=== PATIENT | female | born 1960 | race Caucasian/White ===

== ENCOUNTER → 2017-06-30 | Outpatient (CLI) | payer OTHER ==
[2017-06-30 15:47] LABS: BASO # 0.1 10^3/uL (0.0-0.2); BASO % 1.3 % (0.0-1.0); EOS # 0.3 10^3/uL (0.0-0.50); EOS % 3.6 % (0.0-3.0); HEMATOCRIT 41.6 % (36.0-47.0); IMMATURE GRANULOCYTE % 0.3 % (0-3.0); LYMPH # 1.7 10^3/uL (1.5-4.5); LYMPH % 21.4 % (24.0-44.0); MEAN CORPUSCULAR HEMOGLOBIN 30.6 pg (27.0-33.0); MEAN CORPUSCULAR HGB CONC 33.7 g/dl (32.0-36.5); MONO # 0.4 10^3/uL (0.0-0.8); MONO % 5.2 % (0.0-5.0); NEUTROPHILS # 5.3 10^3/uL (1.8-7.7); NEUTROPHILS % 68.2 % (36.0-66.0); PLATELET COUNT, AUTOMATED 379 10^3/uL (150-450); RED BLOOD COUNT 4.57 10^6/uL (4.00-5.40); RED CELL DISTRIBUTION WIDTH 13.2 % (11.5-14.5); WHITE BLOOD COUNT 7.8 10^3/uL (4.0-10.0)
[2017-06-30 16:32] LABS: ALBUMIN/GLOBULIN RATIO 1.38 (1.00-1.93); ALKALINE PHOSPHATASE 82 U/L (45-117); ALT/SGPT 24 U/L (12-78); ANION GAP 6 MEQ/L (8-16); AST/SGOT 16 U/L (7-37); BILIRUBIN,TOTAL 0.3 MG/DL (0.2-1.0); BLOOD UREA NITROGEN 14 MG/DL (7-18); CALCIUM LEVEL 9.4 MG/DL (8.5-10.1); CARBON DIOXIDE LEVEL 26 MEQ/L (21-32); CHLORIDE LEVEL 107 MEQ/L (98-107); CREATININE FOR GFR 0.74 MG/DL (0.55-1.30); GLOMERULAR FILTRATION RATE > 60.0 (>51); GLUCOSE, FASTING 91 MG/DL (70-100); POTASSIUM SERUM 4.3 MEQ/L (3.5-5.1); SODIUM LEVEL 139 MEQ/L (136-145); TOTAL PROTEIN 6.9 GM/DL (6.4-8.2)
== END ==
LOC: M LAB 14:23
DX: F33.1 Major depressive disorder, recurrent, moderate (principal)
CPT/HCPCS: 80053

== ENCOUNTER → 2018-01-16 | Outpatient (CLI) | payer OTHER | LOC: M PLARAD 15:24 | DX: R59.0 Localized enlarged lymph nodes (principal); Z85.41 Personal history of malignant neoplasm of cervix uteri; E04.1 Nontoxic single thyroid nodule; J84.10 Pulmonary fibrosis, unspecified | CPT/HCPCS: 78815 ==

== ENCOUNTER → 2018-01-29 | Outpatient (REF) | payer OTHER ==
[2018-01-29 18:53] LABS: APPEARANCE, URINE CLEAR (CLEAR); BACTERIA, URINE AUTO 1+ (NEGATIVE); BILIRUBIN, URINE AUTO NEGATIVE (NEGATIVE); BLOOD, URINE BLOOD 1+ (NEGATIVE); COLOR, URINE YELLOW (YELLOW); GLUCOSE, URINE (UA) AUTO NEGATIVE (NEGATIVE); KETONE, URINE AUTO TRACE mg/dL (NEGATIVE); LEUKOCYTE ESTERASE, URINE AUTO TRACE (NEGATIVE); MUCUS, URINE SMALL (NEGATIVE); NITRITE, URINE AUTO NEGATIVE (NEGATIVE); PROTEIN, URINE AUTO NEGATIVE (NEGATIVE); RBC, URINE AUTO 4 /HPF (0-3); SPECIFIC GRAVITY URINE AUTO 1.015 (1.002-1.035); SQUAMOUS EPITHELIAL CELL UR AU 2 /HPF (0-6); UROBILINOGEN, URINE AUTO 0.2 mg/dL (0.0-2.0); WBC, URINE AUTO 5 /HPF (0-3)
== END ==
LOC: M LAB REF 17:22
DX: R30.0 Dysuria (principal)

== ENCOUNTER → 2018-02-22 | Outpatient (CLI) | payer OTHER | LOC: M RAD 09:37 | DX: E04.2 Nontoxic multinodular goiter (principal) | CPT/HCPCS: 76536 ==

== ENCOUNTER → 2018-03-28 | Outpatient (REF) | payer OTHER ==
[2018-03-28 12:09] LABS: ANION GAP 6 MEQ/L (8-16); BLOOD UREA NITROGEN 16 MG/DL (7-18); CALCIUM LEVEL 9.3 MG/DL (8.5-10.1); CARBON DIOXIDE LEVEL 27 MEQ/L (21-32); CHLORIDE LEVEL 107 MEQ/L (98-107); CHOLESTEROL LEVEL 226 MG/DL (<200); CHOLESTEROL RISK RATIO 4.612 (<5); CREATININE FOR GFR 0.84 MG/DL (0.55-1.30); GLOMERULAR FILTRATION RATE > 60.0 (>51); GLUCOSE, FASTING 99 MG/DL (70-100); HDL CHOLESTEROL 49 MG/DL (>40); LDL CHOLESTEROL 153 MG/DL (<100); NON-HDL-C 177 MG/DL; POTASSIUM SERUM 4.8 MEQ/L (3.5-5.1); SODIUM LEVEL 140 MEQ/L (136-145); TRIGLYCERIDES LEVEL 118 MG/DL (<150)
== END ==
LOC: M SFHCPLAZ 09:18
DX: E04.1 Nontoxic single thyroid nodule (principal); Z13.220 Encounter for screening for lipoid disorders; Z13.1 Encounter for screening for diabetes mellitus

== ENCOUNTER → 2018-04-06 | Outpatient (REF) | payer OTHER | LOC: M LAB REF 15:53 | DX: D34 Benign neoplasm of thyroid gland (principal) | CPT/HCPCS: 88173 ==

== ENCOUNTER → 2018-05-03 | Outpatient (CLI) | payer OTHER ==
[~2018-05-03] MED LIST: E-Z-GAS II EFFERVESCENT PACKET (SODIUM BICARB./CITRIC ACID/SIMETHICONE) As Ordered; E-Z-HD 98% w/w 340GM SUSP BTL As Ordered; E-Z-PAQUE 96% w/w SUSP 176GM BTL As Ordered
== END ==
LOC: M RAD 08:31
DX: Z12.31 Encounter for screening mammogram for malignant neoplasm of breast (principal); K44.9 Diaphragmatic hernia without obstruction or gangrene; K21.9 Gastro-esophageal reflux disease without esophagitis; R13.10 Dysphagia, unspecified; Z80.9 Family history of malignant neoplasm, unspecified; Z86.018 Personal history of other benign neoplasm
CPT/HCPCS: 74220

== ENCOUNTER → 2018-06-22 | Outpatient (CLI) | payer OTHER ==
--- NOTE | 2018-06-22 14:57 | REP ---
Clinical: Left groin adenopathy. Technique: Real time genao scale ultrasound examination using linear high frequency transducer. Findings: Ultrasound examination of the right groin demonstrates few normal appearing lymph nodes measuring up to 22 x 6 x 11 mm. No swelling, fluid collection, or mass lesion. No obvious hernia. Impression: Normal appearing right groin lymph nodes. Electronically Signed by Bryan Schafer MD 06/22/2018 02:49 P
== END ==
LOC: M RAD 14:04
PROVIDERS: ATTEND Family Medicine
DX: R59.0 Localized enlarged lymph nodes (principal)

== ENCOUNTER → 2018-08-13 | Outpatient (REF) | payer OTHER ==
[2018-08-13 13:19] LABS: INFLUENZA A AMPLIFICATION POSITIVE (NEGATIVE); INFLUENZA B AMPLIFICATION NEGATIVE (NEGATIVE)
== END ==
LOC: M LAB REF 11:49
PROVIDERS: ATTEND Physician Assistant Medical
DX: J11.1 Influenza due to unidentified influenza virus with other respiratory manifestations (principal)

== ENCOUNTER → 2019-03-14 | Outpatient (CLI) | payer OTHER ==
--- NOTE | 2019-03-14 17:57 | REP ---
Two-view chest: 03/14/2019. Indication: Cough. Comparison: 01/30/2014. Findings: The lungs are clear. Right lower lobe calcified granuloma is unchanged. There is no pleural effusion or pneumothorax. The cardiomediastinal silhouette is unremarkable. Impression: No acute cardiopulmonary process. Electronically Signed by Jose Alberto Pepe DO 03/14/2019 05:49 P
== END ==
LOC: M RAD 14:49
DX: R05 Cough (principal)

== ENCOUNTER → 2019-06-25 | Outpatient (REF) | payer OTHER ==
[2019-06-25 18:07] LABS: CHOLESTEROL RISK RATIO 4.034 (<5)
== END ==
LOC: M SFHCPLAZ 14:10
PROVIDERS: ATTEND Family Medicine
DX: Z13.220 Encounter for screening for lipoid disorders (principal); Z13.1 Encounter for screening for diabetes mellitus

== ENCOUNTER → 2019-10-01 | Outpatient (CLI) | payer OTHER | LOC: M LABSMTC 12:36 | PROVIDERS: ATTEND Family Medicine | DX: Z11.59 Encounter for screening for other viral diseases (principal) | CPT/HCPCS: C8903; U0003 ==

== ENCOUNTER → 2020-05-05 | Outpatient (REF) | payer OTHER ==
[2020-05-05 17:52] LABS: CHOLESTEROL RISK RATIO 4.363 (<5)
[2020-05-05 18:50] LABS: HEMOGLOBIN A1c 5.5 %
== END ==
LOC: M SFHCPLAZ 14:43
PROVIDERS: ATTEND Family Medicine
DX: Z13.1 Encounter for screening for diabetes mellitus (principal); Z13.220 Encounter for screening for lipoid disorders

== ENCOUNTER → 2020-05-08 | Outpatient (CLI) | payer OTHER ==
--- NOTE | 2020-05-08 17:03 | REP ---
INDICATION: ENCNTR SCREEN FOR MALIGNANT NEOPLASM OF RESPIRATORY ORGANS. COMPARISON: None. TECHNIQUE: The study is performed without IV contrast. The images are presented at lung windowing only. FINDINGS: There the following lung nodules: Right upper lobe posteriorly, image 18, 6 mm calcified granuloma Right upper lobe laterally, image 20, 3 mm. Right upper lobe posterolaterally, image 20, 5 mm. Right upper lobe posteriorly, image 39, 4 mm. Right upper lobe posterolaterally, image 40, 3 mm. Right upper lobe posterolaterally, image 41, 4 mm. Left lower lobe, image 64, 4 mm. Right lower lobe, image 76, calcified granuloma 11 mm. There are no other lung nodules or masses. There are no infiltrates or pleural effusions. IMPRESSION: All of the above lung nodules are category 2 lung nodules. The probability of malignancy is less than 1%. Depending on risk factors consider annual follow-up low-dose lung screening chest CT. <Electronically signed by Timothy Harman > 05/08/20 0482
== END ==
LOC: M RAD 13:31
PROVIDERS: ATTEND Family Medicine
DX: Z12.2 Encounter for screening for malignant neoplasm of respiratory organs (principal); F17.218 Nicotine dependence, cigarettes, with other nicotine-induced disorders

== ENCOUNTER → 2020-05-26 | Outpatient (CLI) | payer OTHER ==
--- NOTE | 2020-05-26 14:52 | REPMRS ---
Patient History The patient states she has not had a clinical breast exam in over a year. Patient is postmenopausal, has history of other cancer at age 44, and had previous chemotherapy at age 44. Family history of prostate cancer at age 50 or over and colorectal cancer at age 50 or over in father. Benign stereotatic breast biopsy of the left breast, 2002. No Hormone Replacement Therapy 3D TOMOSYNTHESIS WAS PERFORMED. The [facility] lifetime risk for breast cancer is 5.2%. Volpara breast density c. Digital Woman Screen Mammo: May 26, 2020 - Exam #: [id number] Bilateral CC and MLO view(s) were taken. Technologist: Keyonna Jaeger, Technologist Prior study comparison: May 03, 2018, bilateral digital mammo screening bilat, performed at [facility]. November 04, 2011, digital woman screen mammo performed at [facility]. FINDINGS: The breast tissue is heterogeneously dense. This may lower the sensitivity of mammography. There has been no change in the appearance of the mammogram from the prior studies. There is a moderate amount of residual fibroglandular tissue which is fairly symmetric. There is no interval development of dominant mass, areas of architectural distortion, or clustered microcalcification typical of malignancy. Assessment: BI-RADS/ACR category 1 mammogram. Negative Mammogram. Recommendation Routine screening mammogram in 1 year (for women over age 40). This mammogram was interpreted with the aid of an FDA-approved computer-aided dectection system. Electronically Signed By: Timothy Sandoval MD 05/26/20 [id number]
== END ==
LOC: M WHC 14:17
PROVIDERS: ATTEND Family Medicine
DX: Z12.31 Encounter for screening mammogram for malignant neoplasm of breast (principal); Z85.9 Personal history of malignant neoplasm, unspecified; Z80.0 Family history of malignant neoplasm of digestive organs

== ENCOUNTER → 2020-06-02 | Outpatient (CLI) | payer OTHER ==
[~2020-06-02] MED LIST changes: -E-Z-GAS II EFFERVESCENT PACKET (SODIUM BICARB./CITRIC ACID/SIMETHICONE) As Ordered; -E-Z-HD 98% w/w 340GM SUSP BTL As Ordered; -E-Z-PAQUE 96% w/w SUSP 176GM BTL As Ordered; +ISOVUE-370 76% 100ML VIAL As Ordered ONE
--- NOTE | 2020-06-02 20:50 | REP ---
INDICATION: GROSS HEMATURIA. COMPARISON: None TECHNIQUE: Axial precontrast contrast-enhanced and delayed images from the lung bases to the pubic symphysis using 100 cc Isovue 370 intravenous contrast material. Coronal and sagittal reformations obtained. This CT examination was performed using the following dose reduction techniques: Automated exposure control, adjustment of mA and/or kv according to the patient's size, and the use of iterative reconstruction technique. FINDINGS: Evaluation of the urinary tract system demonstrates 2 simple subcentimeter left renal cortical cysts. No further abnormalities are identified. Specifically, no nephroureterolithiasis, hydroureteronephrosis, perinephric stranding, or renal mass lesion identified. Enhancement to the bilateral kidneys along with excretion is symmetric and normal. The bladder is unremarkable. Liver, spleen, pancreas, gallbladder, and bilateral adrenal glands are essentially normal. Incidental splenic calcifications consistent with prior granulomatous disease. The enteric system including stomach, small, and large bowel appears normal. No evidence for obstruction or acute inflammatory process. Normal terminal ileum and appendix are identified in the right lower quadrant. Few scattered sigmoid diverticula noted without acute diverticulitis. Pelvis demonstrates normal bladder and age-appropriate uterus/adnexa with calcified uterine fibroid noted. No ascites. No free air. No intraperitoneal or retroperitoneal adenopathy. Abdominal aorta and vasculature appear normal. Musculoskeletal structures are intact and without acute osseous abnormality. Lung bases include 1.5 cm calcified granuloma in the right lower lobe. IMPRESSION: No acute abdominopelvic pathology appreciated. Urinary tract system demonstrates 2 subcentimeter simple left renal cysts. No further urinary tract pathology appreciated. Scattered diverticula. Small calcified uterine myoma. <Electronically signed by Bryan Schafer > 06/02/20 1381
== END ==
LOC: M RAD 14:27
PROVIDERS: ATTEND Family Medicine
DX: R31.0 Gross hematuria (principal)
CPT/HCPCS: 74178; Q9967

== ENCOUNTER → 2020-08-12 | Outpatient (REF) | payer OTHER ==
[2020-08-12 12:52] LABS: ALBUMIN 3.8 GM/DL (3.2-5.2); ALT/SGPT 17 U/L (12-78); BILIRUBIN,TOTAL 0.3 MG/DL (0.2-1.0); BLOOD UREA NITROGEN 11 MG/DL (7-18); CALCIUM LEVEL 9.3 MG/DL (8.5-10.1); CARBON DIOXIDE LEVEL 28 MEQ/L (21-32); CHLORIDE LEVEL 107 MEQ/L (98-107); CREATININE FOR GFR 0.87 MG/DL (0.55-1.30); GLOMERULAR FILTRATION RATE > 60.0 (>51); GLUCOSE, FASTING 85 MG/DL (70-100); SODIUM LEVEL 140 MEQ/L (136-145); TOTAL PROTEIN 6.7 GM/DL (6.4-8.2)
== END ==
LOC: M SFHCPLAZ 09:49
PROVIDERS: ATTEND Family Medicine
DX: E78.00 Pure hypercholesterolemia, unspecified (principal)

== ENCOUNTER → 2020-12-23 | Outpatient (CLI) | payer OTHER ==
--- NOTE | 2020-12-23 11:41 | REP ---
INDICATION: PAIN IN RIGHT HIP. COMPARISON: None. TECHNIQUE: AP and frogleg lateral views of both hips were obtained. FINDINGS: The hip joints are normal. There is no significant arthropathy or evidence of subluxation or dislocation. No evidence of fracture of the proximal femora. The adjacent bony pelvis is unremarkable. There are coarse calcifications in the pelvis, may be degenerating uterine leiomyomas. IMPRESSION: 1. Normal bilateral hips. 2. Other findings as noted. <Electronically signed by Francis Selby > 12/23/20 2938
== END ==
LOC: M PLAIMG 09:09
PROVIDERS: ATTEND Family Medicine
DX: M25.551 Pain in right hip (principal); M25.552 Pain in left hip

== ENCOUNTER → 2021-01-07 | Outpatient (REF) | payer OTHER ==
[2021-01-07 14:08] LABS: APPEARANCE, URINE CLEAR (CLEAR); BACTERIA, URINE AUTO NEGATIVE (NEGATIVE); BILIRUBIN, URINE AUTO NEGATIVE (NEGATIVE); BLOOD, URINE BLOOD NEGATIVE (NEGATIVE); COLOR, URINE YELLOW (YELLOW); GLUCOSE, URINE (UA) AUTO NEGATIVE (NEGATIVE); KETONE, URINE AUTO NEGATIVE (NEGATIVE); LEUKOCYTE ESTERASE, URINE AUTO 1+ (NEGATIVE); MUCUS, URINE SMALL (NEGATIVE); NITRITE, URINE AUTO NEGATIVE (NEGATIVE); PROTEIN, URINE AUTO NEGATIVE (NEGATIVE); RBC, URINE AUTO 2 /HPF (0-3); SPECIFIC GRAVITY URINE AUTO 1.006 (1.002-1.035); SQUAMOUS EPITHELIAL CELL UR AU 1 /HPF (0-6); UROBILINOGEN, URINE AUTO 0.2 mg/dL (0.0-2.0); WBC, URINE AUTO 2 /HPF (0-3)
== END ==
LOC: M SMT 13:23
PROVIDERS: ATTEND Urology
DX: R31.0 Gross hematuria (principal)

== ENCOUNTER → 2021-03-04 | Outpatient (CLI) | payer OTHER ==
--- NOTE | 2021-03-04 16:05 | REP ---
INDICATION: CHEWING DIFFICULTTY. COMPARISON: None. TECHNIQUE: Four views FINDINGS: Limited plain film exam Chris a gao of the mandible shows no evidence of an acute fracture. IMPRESSION: Negative exam consider CT. <Electronically signed by Braxton Moulton > 03/04/21 [id number]
== END ==
LOC: M PLAIMG 15:06
PROVIDERS: ATTEND Family Medicine
DX: K08.89 Other specified disorders of teeth and supporting structures (principal)

== ENCOUNTER → 2021-04-02 | Outpatient (CLI) | payer OTHER ==
[~2021-04-02] MED LIST changes: +ALPR1TAB3; +ATOR1TAB19; +GABA-283; -ISOVUE-370 76% 100ML VIAL As Ordered ONE; +MELO15TA28; +OMEP-218; +TIZA4TAB4; +TRAZ-252
== END ==
LOC: M LABSMTC 12:06
PROVIDERS: ATTEND Anesthesiology
DX: Z01.818 Encounter for other preprocedural examination (principal); Z11.52 Encounter for screening for COVID-19

== ENCOUNTER 2021-04-07 11:05 | Day surgery (SDC) | payer OTHER ==
[~2021-04-07] VITALS: Ht 160 cm; Wt 55.7 kg
[~2021-04-07 11:05] MED LIST changes: +LIDOCAINE 2% 100MG/5ML SDV (FOR ANES.) As Ordered ONE; +NS 1,000 ML IV ONE; +propofoL 200 MG/20 ML VIAL As Ordered ONE
--- OUTSIDE RECORDS SUMMARY | 2021-04-07 11:16 | CCD ---
Author Author [facility] Organization [facility] Address Unknown Phone Unavailable Care Team Providers Care Bulk Plant Operator Name Role Phone Soto Edwards Unavailable PROBLEMS Type Condition ICD9-CM Code [id number] Code Onset Dates Condition S tatus W/U Status Risk SNOMED Code Notes Problem Right thyroid nodule E04.1 Active confirmed 873357991 Problem Personal history of malignant neoplasm of cervix uteri Z85.41 Active confirmed 652121931 Problem Other chronic pain G89.29 Active confirmed 8 4166989 Problem Lumbago with sciatica, right side M54.41 Active confirmed 417737464 Problem QUIN (stress urinary incontinence, female) N39.3 Active confirmed 81534563 Problem Urinary, incontinence, stress female N39.3 Act radha confirmed 41103506 Problem Nicotine use disorder F17.200 Active confirmed 07498506 Problem History of therapeutic radiation Z92.3 Active conf irmed 315733154 Problem Incontinence of feces, unspecified fecal incontinence type R15.9 Active confirmed 05194258 Problem History of cervical cancer Z85.41 Active confirmed 976055990 Problem Dysphagia, unspecified type R13.10 Active confirmed 97563659 Problem Nicotine dependence with current use F17.200 Act radha confirmed 366230230 Problem Gastroesophageal reflux disease without esophagitis K21.9 Active confirmed 166480432 Problem 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 Ac tive confirmed [id number] Problem Pure hypercholesterolemia E78.00 Active confirmed 548069378 ALLERGIES No Known Allergies ENCOUNTERS from 1960 to 2021-02-02 Encounter Location Date Provider Diagnosis [facility] [id number] [place] [address] [place] [address] Dec, Soto Edwards Gross hematuria R31.0 ; History of thera peutic radiation Z92.3 and History of cervical cancer Z85.41 IMMUNIZATIONS Vaccine Route Administration Date Status Influenza 18 yrs & older Flublok IM Intramuscular May 05, 2020 Administered Influenza 18 yrs & older Flublok IM Intramuscular Apr 02, 2019 Administered Pneumococcal Adult 0.5mL Pneumovax 23 IM Intramuscular Jun 13 019 Administered TDAP 0.5mL (Boostrix) IM Intramuscular Jun 25, 2019 Administe red SOCIAL HISTORY Tobacco Use: Social History Observation Description Date Details (start date - stop date) Current Smoker Sex Assigned At : Social History Observation Description Sex Assigned At Unknown Audit Question Answer Notes Total Score: 0 Interpretation: Alcohol Education Sexual Hx: Question Answer Notes Had sex in the last 12 months (vaginal, oral, or anal)? No Have you ever had an STD? No Drug and Alcohol Question Answer Notes Total Score: 0 Interpretation: No problems reported Alcohol Screening: Question Answer Notes Did you have a drink containing alcohol in the past year? No Points 0 Interpretation Negative Tobacco Use: Question Answer Notes Are you a: current smoker Patient counseled on the dangers of tobacco use and urged to quit: 04/02/2019 How many cigarettes a day do you smoke? 6-10 Are you interested in quitting? Ready to quit Using pa tches at this time Counseled the patient on tobacco use, cessation provided 04/2019 REASON FOR REFERRAL No Information VITAL SIGNS Weight 126 lbs Dec, Weight-kg 57.15 kg Dec, Height 63.5 in Dec, BMI 21.97 kg/m2 Dec, Heart Rate 83 /min Dec, Respiratory Rate 16 /min Dec, Temperature 97.1 degrees Fahrenheit Dec, Oximetry 98 Dec, Blood pressure systolic 80 mm Hg Dec, Blood pressure diastolic 46 mm Hg Dec, MEDICATIONS Medication SIG (Take, Route, Frequency, Duration) Notes Start Da te End Date Status Xanax 1 mg 1 tablet Orally four times daily Active Atorvastatin Calcium 10 MG 1 tablet Orally Once a day for 30 day (s) Jul, Active Omeprazole 20 MG 1 capsule 30 minutes before morning meal Orally Once a day for 30 day(s) Active traZODone HCl 50 MG 0.5 tablet in morning Orally Once a day Active Gabapentin 400 MG TAKE 1 CAPSULE BY MOUTH THREE TIMES DAILY Oral for 30 Active PROCEDURES No Information RESULTS Component Value Reference Range UA URINALYSIS Reviewed date:01/13/2021 12:18:36 Interpretation: Performing Lab:[facility], [facility] [id number] , ,[place] [address] NON OUTSIDE PLANT CABLE ENGINEER CYTOLOGY REQ FOR SERVI Reviewed date:01/13/2021 12:18:21 Interpretation: Performing Lab:[facility], [facility] [address] [address] , ,[place] [address] URINE REASON FOR VISIT hematuria MEDICAL (GENERAL) HISTORY Type Description Date Medical History Cancer of Cervix 2004 - [place], [place] Medical History Abnormal cytology of bx of mouth - 2004. No follow up Medical History Colonoscopy done 7 years ago was normal (due for next in 2020) Surgical History left breast biopsy, marker placed 2004 Surgical History implants placed in cervix x 2, also had 34 radiation treatments to pelvic area, 4 chemotherapy treatments 2004 Surgical History Pin in Rt ankle Surgical History cysto 01/2021 Goals Section No Information Health Concerns No Information MEDICAL EQUIPMENT No Information MENTAL STATUS No Information FUNCTIONAL STATUS No Information ASSESSMENTS Encounter Date Diagnosis Assessment Notes Treatment Notes Treatm ent Clinical Notes Dec, Gross hematuria (ICD-10 - R31.0) Dec, History of therapeutic radiation (ICD-10 - Z92.3 ) Dec, History of cervical cancer (ICD-10 - Z85.41) PLAN OF TREATMENT Next Appt Details local cysto Reason:gross hematuria Provider Name:Russ Junior, 2021-02-19 01 :00:00 PM, [address], , [place], [address], Provider Name:Soto Edwards, 6 09:00:00 AM, [address], , [place], [address], Follow Up:local cystogross hematuria Insurance Providers Payer Name Payer Address Payer Phone Insured Name Patient Relati onship to Insured Coverage Start Date Coverage End Date [facility] CORPORATE CLAIMS DEPT [address] [facility] [phone] MARCUS CAMPBELL self
--- OUTSIDE RECORDS SUMMARY | 2021-04-07 11:16 | CCD | Continuity of Care Document ---
Author Author Em JOHNSON PA Organization Unknown Address [address], [address] [place] [address] Phone [phone] Care Team Providers Care Asset Liability Analyst Name Role Phone Russ Junior D.O. AUTM [phone] Problems Active Problems Provider Date Tobacco user Jason Andrew MD Onset: 1 History of malignant neoplasm of cervix Jason Andrew MD Onset: 07/26/2010 Social History Type Date Description Comments Sex Unknown Tobacco Use Start: Unknown Patient is a current cigarette smoker, smokes every day ETOH Use Denies alcohol use Tobacco Use Start: Unknown Patient is a current smoker, smo kes every day 1 pack per day x35 years Recreational Drug Use Denies Drug Use Allergies and adverse reactions Active Allergies Criticality Reaction | Severity Comments Date No Known Drug Allergy Unable to assess criticality 07/20/2010 Medications Active Medications SIG Qnty Indications Ordering Provide r Date Estradiol 10mcg Tablets one tab in the vagina q 3 days 27tabs Devonte Anthony, 02/26/2018 Trazodone HCL 50mg Tablets 1 tab by mouth every night at bedtime as needed Unknown Atorvastatin Calcium 10mg Tablets 1 tab by mouth every day Unknown Gabapentin 400mg Capsules 1 tab by mouth three times a day Unknown Alprazolam 1mg Tablets 1 tab by mouth four times a day Unknown Meloxicam 15mg Tablets 1 tab by mouth every day Unknown Tizanidine HCL 4mg Tablets 1 tab by mouth every day Unknown Omeprazole 20mg Capsules DR 1 tab by mouth every day Unknown Immunizations Description No Information Available Vital Signs Date Vital Result Comment 03/11/2021 10:01am BP Systolic 104 mmHg BP Diastolic 68 mmHg Body Temperature 98.4 F Height 63 inches 5'3" Weight 128.38 lb BMI (Body Mass Index) 22.7 kg/m2 [place] Body Weight 115 lb Weight 58.231 kg BSA (Body Surface Area) 1.60 m2 05/30/2018 2:30pm BP Systolic 102 mmHg BP Diastolic 78 mmHg Height 64 inches 5'4" Weight 130.00 lb BMI (Body Mass Index) 22.3 kg/m2 [place] Body Weight 120 lb Weight 58.968 kg BSA (Body Surface Area) 1.63 m2 Results Description No Information Available Procedures Date Code Description Status 03/11/2021 78585 Office/Outpatient New Moderate M DM 45-59 Minutes Completed Medical Devices Description No Information Available Encounters Type Date Location Provider Dx Diagnosis Office Visit 03/11/2021 9:45a [facility] ESTEFANÍA Stewart Z12.11 Encounter for screening for malignant ne oplasm of colon Z80.0 Family history of malignant neoplasm of digestive organs F17.200 Nicotine dependence, unspeci fied, uncomplicated Assessments Date Code Description Provider 03/11/2021 Z12.11 Encounter for screening for claudio gnant neoplasm of colon ESTEFANÍA Noe 03/11/2021 Z80.0 Family history of malignant neop lasm of digestive organs ESTEFANÍA Noe 03/11/2021 F17.200 Nicotine dependence, unspecified , uncomplicated ESTEFANÍA Noe Plan of Treatment Future Appointment(s):* 04/21/2021 1:45 pm - ESTEFANÍA Noe at [facility] * 04/07/2021 1:00 pm - Damaso Salgado MD at [facility] 03/11/2021 - ESTEFANÍA Noe* Z12.11 Encounter for screening for malignant neoplasm of colon * Z80.0 Family history of malignant neoplasm of digestive organs * F17.200 Nicotine dependence, unspecified, uncomplicated Functional Status Description No Information Available Mental Status Description No Information Available Referrals Refer to Reason for Referral Status Appt Date Timothy Saldaña D.O. SCHEDULE COLONOSCOPY Scheduled [address] [place], [place] [address] [phone]
--- OUTSIDE RECORDS SUMMARY | 2021-04-07 11:16 | CCD ---
Author Author [facility] Organization [facility] Address Unknown Phone Unavailable Care Team Providers Care Stallion Manager Name Role Phone Russ Junior Unavailable PROBLEMS Type Condition ICD9-CM Code [id number] Code Onset Dates Condition S tatus W/U Status Risk SNOMED Code Notes Problem Personal history of malignant neoplasm of cervix uteri Z85.41 Active confirmed 887315635 Problem Lumbago with sciatica, right side M54.41 Active confirmed 291298226 Problem Right thyroid nodule E04.1 Active confirmed 960397659 Problem Dysphagia, unspecified type R13.10 Active confirmed 41854396 Problem Other chronic pain G89.29 Active confirmed 8 8545767 Problem Incontinence of feces, unspecified fecal incontinence type R15.9 Active confirmed 02282083 Problem Nicotine use disorder F17.200 Active confirmed 45979768 Problem Gastroesophageal reflux disease without esophagitis K21.9 Active confirmed 189850666 Problem 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 Active confirmed 1 4110583 Problem Urinary, incontinence, stress female N39.3 Act radha confirmed 39594598 Problem Mixed hyperlipidemia E78.2 Active confirmed 054746363 Problem QUIN (stress urinary incontinence, female) N39.3 Active confirmed 66448364 Problem 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 Ac tive confirmed 451140314553107 Problem Pure hypercholesterolemia E78.00 Active confirmed 362975565 Problem History of cervical cancer Z85.41 Active confirmed 260113073 Problem History of therapeutic radiation Z92.3 Active conf irmed 412271610 ALLERGIES No Known Allergies ENCOUNTERS from 1960 to 2021-03-02 Encounter Location Date Provider Diagnosis [place] [id number] [place] [address] Feb, Russ Junior IMMUNIZATIONS Vaccine Route Administration Date Status COVID-19 dose #1 given elsewhere Unspecified Unknown Aug Administered Influenza 18 yrs & older Flublok IM Intramuscular Feb 19, 2021 Administered Influenza 18 yrs & older Flublok [...] REASON FOR REFERRAL No Information VITAL SIGNS No information MEDICATIONS Medication SIG (Take, Route, Frequency, Duration) Notes Start Da te End Date Status tiZANidine HCl 4 MG 1 tablet as needed Orally at night before be d for 30 days Feb, Active Omeprazole 20 MG 1 capsule 30 minutes before morning meal Orally Once a day for 30 day(s) Active Gabapentin 400 MG TAKE 1 CAPSULE BY MOUTH THREE TIMES DAILY Oral for 30 Active traZODone HCl 50 MG 0.5 tablet in morning Orally Once a day Active Meloxicam 15 MG 1 tablet with dinner Orally Once a day for 30 da y(s) Feb, Active Atorvastatin Calcium 10 MG 1 tablet Orally Once a day for 30 day (s) Jul, Active Xanax 1 mg 1 tablet Orally four times daily Active PROCEDURES No Information RESULTS No Results REASON FOR VISIT referral problems MEDICAL (GENERAL) HISTORY Type Description Date Medical History Hx of cervical cancer 2004 - [facility], [place], [place] Medical History Abnormal cytology of bx of mouth - 2004. No follow up Medical History Colonoscopy done 7 years ago in [place] was normal (due for next in 2020) Medical History hematuria 2/2 radiation cyst itis (s/p 2020 cystoscopy w/ Turecki) Medical History nicotine use disorder Medical History Gastroesophageal reflux disease without esophagitis Medical History Pure hypercholesterolemia Medical History Right thyroid nodule Surgical History left breast biopsy, marker placed 2004 Surgical History implants placed in cervix x 2, also had 34 radiation treatments to pelvic area, 4 chemotherapy treatments 2004 Surgical History Pin in Rt ankle Surgical History cysto 01/2021 Goals Section No Information Health Concerns No Information MEDICAL EQUIPMENT No Information MENTAL STATUS No Information FUNCTIONAL STATUS No Information ASSESSMENTS No Information PLAN OF TREATMENT Medication Medication Name Sig Start Date Stop Date tiZANidine HCl 4 MG 1 tablet as needed Orally at night befor e bed for 30 days Feb, Meloxicam 15 MG 1 tablet with dinner Orally Once a day f or 30 day(s) Feb, Next Appt Details Provider Name:Soto Edwards, 2022-01- 6 09:00:00 AM, [address], , [place], [address], Insurance Providers Payer Name Payer Address Payer Phone Insured Name Patient Relati onship to Insured Coverage Start Date Coverage End Date [facility] CORPORATE CLAIMS DEPT [address] [place] [phone] MARCUS CAMPBELL self
--- OUTSIDE RECORDS SUMMARY | 2021-04-07 11:16 | CCD | Continuity of Care Document ---
Author Author Em JOHNSON PA Organization Unknown Address [address], [address] [place] [address] Phone [phone] Care Team Providers Care Extractor Operator Name Role Phone Russ Junior D.O. AUTM [phone] Problems Active Problems Provider Date Tobacco user [...] lb BMI (Body Mass Index) 22.7 kg/m2 [place] Body Weight 115 lb Weight 58.231 kg BSA (Body Surface Area) 1.60 m2 05/30/2018 2:30pm BP Systolic 102 mmHg BP Diastolic 78 mmHg Height 64 inches 5'4" Weight 130.00 lb BMI (Body Mass Index) 22.3 kg/m2 [place] Body Weight 120 lb Weight 58.968 kg BSA (Body Surface Area) 1.63 m2 Results Description No Information Available Procedures Description No Information Available Medical Devices Description No Information Available Encounters Description No Information Available Assessments Date Code Description Provider 03/11/2021 Z12.11 Encounter for screening for claudio gnant neoplasm of colon ESTEFANÍA Noe 03/11/2021 Z80.0 Family history of malignant neop lasm of digestive organs ESTEFANÍA Noe 03/11/2021 F17.200 Nicotine dependence, unspecified , uncomplicated ESTEFANÍA Noe Plan of Treatment Future Appointment(s):* 04/21/2021 1:45 pm - ESTEFANÍA Noe at [facility] * 04/07/2021 1:00 pm - Damaso Salgado MD at [facility] 03/11/2021 - ESTEFANÍA Noe* Z12.11 Encounter for screening for malignant neoplasm of colon * Z80.0 Family history of malignant neoplasm of digestive organs * F17.200 Nicotine dependence, unspecified, uncomplicated Functional Status Description No Information Available Mental Status Description No Information Available Referrals Refer to Reason for Referral Status Appt Date Timothy Saldaña D.O. SCHEDULE COLONOSCOPY Scheduled [address] [place] [address] [phone]
--- OUTSIDE RECORDS SUMMARY | 2021-04-07 11:16 | CCD ---
Author Author [facility] Organization [facility] Address Unknown Phone Unavailable Care Team Providers Care High Speed Operator Name Role Phone Russ Junior Unavailable PROBLEMS Type Condition ICD9-CM Code CWT54-CA Code Onset Dates Condition S tatus W/U Status Risk SNOMED Code Notes Problem Right thyroid nodule E04.1 Active confirmed 676915620 Problem Personal history of malignant neoplasm of cervix uteri Z85.41 Active confirmed 337446321 Problem Other chronic pain G89.29 Active confirmed 8 2608407 Problem Lumbago with sciatica, right side M54.41 Active confirmed 274328615 Problem Urinary, incontinence, stress female N39.3 Act radha confirmed 16395965 Problem Dysphagia, unspecified type R13.10 Active confirmed 76704854 Problem Nicotine use disorder F17.200 Active confirmed 34508944 Problem Gastroesophageal reflux disease without esophagitis K21.9 Active confirmed 968707913 Problem 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 Ac tive confirmed 138983786363804 Problem Anxiety F41.9 Active confirmed 01002533 Problem QUIN (stress urinary incontinence, female) N39.3 Active confirmed 84622447 Problem Mixed hyperlipidemia E78.2 Active confirmed 050552456 Problem Incontinence of feces, unspecified fecal incontinence type R15.9 Active confirmed 46451578 Problem Pure hypercholesterolemia E78.00 Active confirmed 640524505 Problem History of cervical cancer Z85.41 Active confirmed 984787847 Problem History of therapeutic radiation Z92.3 Active conf irmed 584673462 Problem 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 Active confirmed 1 8093282 ALLERGIES No Known Allergies ENCOUNTERS from 1960 to 2021-03-14 Encounter Location Date Provider Diagnosis [facility] GME Resident [phone] [place] [address] 01 Feb, 2021 Russ Barkin Pain in right hip M2 5.551 ; Encounter for routine adult health examination with abnormal findings Z00.01 ; Pain in left hip M25.552 ; 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 ; Colon cancer screening Z12.11 ; Screening for lung cancer Z12.2 ; Diabetes mellitus screening Z13.1 ; Lipid screening Z13.220 ; Mixed hyperlipidemia E78.2 ; Chewing difficulty K08.89 ; Nicotine use disorder F17.200 ; Immunization due Z23 ; Breast cancer screening by mammogram Z12.31 ; Right thyroid nodule E04.1 and Anxiety F41.9 IMMUNIZATIONS Vaccine Route Administration Date Status COVID-19 [...] use, cessation provided 04/2019 REASON FOR REFERRAL from 1960 to 2021-03-14 Reason colonoscopy Diagnosis 1 Colon cancer screening (Z12. 11) Referral Organization [facility] GME Resident Referring Provider First Name Russ Referring Provider Last Name Sandi Referring Provider Specialty Family Medicine Referred Provider Timothy Saldaña (SMP) Referred Provider Specialty General Surgery Referral Priority Routine Referral Appointment Date 2021-03-11 General Notes StacieLindsey esteban 03/01/2021 1 0:07:48 AM > faxed Reason hip pain at night only, plea se eval and treat Diagnosis 1 Pain in right hip (M25.551) Referral Organization [facility] GME Resident Referring Provider First Name Russ Referring Provider Last Name Sandi Referring Provider Specialty Family Medicine Referred Provider Specialty Physical Therapist Referral Priority Routine Reason Patient w/ history of teeth pulled now with a prominence on R-side of mouth preventing correct chewing. Diagnosis 1 Chewing difficulty (K08.89) Referral Organization [facility] GM Resident Referring Provider First Name Russ Referring Provider Last Name Sandi Referring Provider Specialty Family Medicine Referred Provider Ned Sidhu Referral Priority Routine General Notes GratiotLindsey esteban 03/01/2021 1 0:51:25 AM > faxedLindsey Quinones 03/02/2021 3:32:27 PM > faxed to new provider per Pt request.Lindsey Quinones 03/04/2021 2:36:04 PM > faxed to new provider. VITAL SIGNS Weight 124.4 lbs Feb, Weight-kg 56.43 kg Feb, Height 63.5 in Feb, BMI 21.69 kg/m2 Feb, Heart Rate 96 /min Feb, Respiratory Rate 18 /min Feb, Temperature 97.7 degrees Fahrenheit Feb, Oximetry 96 Feb, Blood pressure systolic 118 mm Hg Feb, Blood pressure diastolic 60 mm Hg Feb, MEDICATIONS Medication SIG (Take, Route, Frequency, Duration) [...] tablet Orally four times daily Active PROCEDURES from 1960 to 2021-03-14 Procedure Date Ordered Result Body Site Imm: Flublok Quadrivalent 18 years & older 0.5mL IM Influenza 20 11-03-01 N/A RESULTS No Results REASON FOR VISIT follow up f/u hips, hematuria MEDICAL (GENERAL) HISTORY Type Description Date Medical History Hx of cervical cancer 2004 - [place], [place] Medical History Abnormal cytology of bx of mouth - 2004. No follow up Medical History Colonoscopy done 7 years ago in [place] was normal (due for next in 2020) [...] Notes Treatment Notes Treatm ent Clinical Notes Feb, Pain in right hip (ICD-10 - M25.551) XR's unremarkable. She experiences relief with tizanidine though, so we will represcribe at the very least and trial her on NSAIDs for a short period. Possibly trochanteric bursitis, I am unclear on why this only occurs on lying down, will trial patient on meloxicam and tizanidine in the evening and referral for PT. Patient verbalized understanding and agreement with plan moving forward. Feb, Encounter for routine adult health examination with abnormal findings (ICD-10 - Z00.01) Patient's past medical, surgical, social, and family history were reviewed and updated. See preventive care in other section. Feb, Pain in left hip (ICD-10 - M25.552) See pain in right hip Feb, Radiation cystitis (ICD-10 - N30.40) Patient was instructed to report any recurrences of hematuria. She will follow up with urology in a year. Patient in agreement with plan moving forward. Feb, Colon cancer screening (ICD-10 - Z12.11) Referral sent. Feb, Screening for lung cancer (ICD-10 - Z12.2) Not due until 04/2021Feb, Diabetes mellitus screening (ICD-10 - Z13.1) Fasting glucose of 85 in 07/2020Feb, Lipid screening (ICD-10 - Z13.220) Last lipid screening 04/2020. ASCVD risk at that time 6.4%. Will rescreen in 2 months at follow up visit as patient would like to wait to do any further labs. Feb, Mixed hyperlipidemia (ICD-10 - E78.2) Last lipid screening 04/2020. ASCVD risk at that time 6.4%. Will rescreen in 2 months at follow up visit as patient would like to wait to do any further labs. Feb, Chewing difficulty (ICD-10 - K08.89) Will refer to oral surgeon for evaluation, no indication for abx, meloxicam may help with any swelling. Unsure if this represents a cancerous process, put in for Xrays of jaw and will defer to oral surgeon for further evaluation regarding imaging. Patient in agreement with plan moving forward. Feb, Nicotine use disorder (ICD-10 - F17.200) Uninterested in quitting at this time. Patient aware of risks moving forward. Feb, Immunization due (ICD-10 - Z23) Patient Educated with: Flu Recombinant [id number] (Flu Recombinant [id number]) Declined shingrix vaccine TDAP pneumovax UTD Patient counseled on possible vaccine reactions and advised to stay well hydrated and take tylenol as needed for flu like symptoms, given reassurance these should resove within 24-48 hours. Patient verbalized understanding and agreement with plan moving forward. Feb, Breast cancer screening by mammogram (ICD-10 - Z 12.31) UTD 05/2020Feb, Right thyroid nodule (ICD-10 - E04.1) Seen by Dr. Cain 04/2018 for 2 dominant right sided hypervascular nodule with TSH and free T4 within normal limits. FNAs done were satisfactory for evaluation and demonstrated benign cellular specimens with blunted groups of follicular cells in background of colloid macrophages and lymphocytes. Patient was supposed to follow-up in 1 year for surveillance of the nodules with an ultrasound scheduled in 1 year as well. At next visit will encourage patient to contact Dr. Cain for same or we will rerefer her. Feb, Anxiety (ICD-10 - F41.9) She reports she is on xanax for anxiety, on further inspection into external Rx history she is on xanax 1 mg QID, haldol 2 mg TID, and trazodone 50 mg through her psych provider, Sakina Cleary NP. May consider contacting provider about reducing xanax dosing. Feb, Other Gave her the ph one number for [facility] urology. Advised patient to give [facility] urology a call, she is not currently having any gross hematuria so I don't think their would be a point to getting a urine sample at this time. Patient verbalized understanding and agreement with plan moving forward. PLAN OF TREATMENT Medication Medication Name Sig Start Date Stop Date tiZANidine HCl 4 MG 1 tablet as needed Orally at night befor e bed for 30 days Feb, Meloxicam 15 MG 1 tablet with dinner Orally Once a day f or 30 day(s) Feb, Treatment Notes Assessment Notes Clinical Notes Right thyroid nodule Seen by Dr. Cain for 2 dominant right sided hypervascular nodule with TSH and free T4 within normal limits. FNAs done were satisfactory for evaluation and demonstrated benign cellular specimens with blunted groups of follicular cells in background of colloid macrophages and lymphocytes. Patient was supposed to follow-up in 1 year for surveillance of the nodules with an ultrasound scheduled in 1 year as well. At next visit will encourage patient to contact Dr. Cain for same or we will rerefer her. Pain in right hip XR's unremarkable. S he experiences relief with tizanidine though, so we will represcribe at the very least and trial her on NSAIDs for a short period. Possibly trochanteric bursitis, I am unclear on why this only occurs on lying down, will trial patient on meloxicam and tizanidine in the evening and referral for PT. Patient verbalized understanding and agreement with plan moving forward. Breast cancer screening by mammogram UTD 05/2020 Encounter for routine adult health examination with abnormal findings Patient's past medical, surgical, social, and family history were reviewed and updated. See preventive care in other section. Pain in left hip See pain in right hi p Anxiety She reports she is o n xanax for anxiety, on further inspection into external Rx history she is on xanax 1 mg QID, haldol 2 mg TID, and trazodone 50 mg through her psych provider, Sakina Evin, [employer]. May consider contacting provider about reducing xanax dosing. Radiation cystitis Patient was instruct ed to report any recurrences of hematuria. She will follow up with urology in a year. Patient in agreement with plan moving forward. Colon cancer screening Referral sent. Screening for lung cancer Not due until 04/2021 Diabetes mellitus screening Fasting gluc ose of 85 in 07/2020 Immunization due Patient Educated with: Flu R ecombinant [id number] (Flu Recombinant [id number].pdf) Declined shingrix vaccineTDAP pneumovax UTDPatient counseled on possible vaccine reactions and advised to stay well hydrated and take tylenol as needed for flu like symptoms, given reassurance these should resove within 24-48 hours. Patient verbalized understanding and agreement with plan moving forward. Nicotine use disorder Uninterested in qu itting at this time. Patient aware of risks moving forward. Lipid screening Last lipid screening 04/2020. ASCVD risk at that time 6.4%. Will rescreen in 2 months at follow up visit as patient would like to wait to do any further labs. Mixed hyperlipidemia Last lipid screenin g 04/2020. ASCVD risk at that time 6.4%. Will rescreen in 2 months at follow up visit as patient would like to wait to do any further labs. Chewing difficulty Will refer to oral s urgeon for evaluation, no indication for abx, meloxicam may help with any swelling. Unsure if this represents a cancerous process, put in for Xrays of jaw and will defer to oral surgeon for further evaluation regarding imaging. Patient in agreement with plan moving forward. Treatment Notes Test Name Order Date PLZ THYROID, SOFT TISSUE HEAD +NECK US 2021-02-19 Referrals Referral Date Details 2021-03-11 2021-03-11, colonoscopyDung (SMP) hip pain at night only, plea se eval and treat Patient w/ history of teeth pulled now with a prominence on R-side of mouth preventing correct chewing., Ned Sidhu Next Appt Details 2 Months Reason:f/u hips Provider Name:Soto Edwards, 2022-01- 6 09:00:00 AM, [address], , [place], [address], Follow Up:2 Monthsf/u hips Insurance Providers Payer Name Payer Address Payer Phone Insured Name Patient Relati onship to Insured Coverage Start Date Coverage End Date COUNTS INCLUDE [facility] BEDS AT THE [facility] CORPORATE CLAIMS DEPT [address] [facility] [phone] MARCUS CAMPBELL self
--- OUTSIDE RECORDS SUMMARY | 2021-04-07 11:16 | CCD | Continuity of Care Document ---
Author Author Em JOHNSON [facility] Organization Unknown Address [address], [address] [place] [address] Phone [phone] Care Team Providers Care Cane Feeder Name Role Phone Russ Junior D.O. AUTM [phone] Problems Active Problems Provider Date Tobacco user [...] lb BMI (Body Mass Index) 22.7 kg/m2 Kim Body Weight 115 lb Weight 58.231 kg BSA (Body Surface Area) 1.60 m2 05/30/2018 2:30pm BP Systolic 102 mmHg BP Diastolic 78 mmHg Height 64 inches 5'4" Weight 130.00 lb BMI (Body Mass Index) 22.3 kg/m2 Kim Body Weight 120 lb Weight 58.968 kg [...] 04/21/2021 1:45 pm - ESTEFANÍA Noe at [facility] * 04/07/2021 1:00 pm - Damaso Salgado MD at [facility] 03/11/2021 - ESTEFANÍA Noe* Z12.11 Encounter for screening for malignant neoplasm of colon * Z80.0 Family history of malignant neoplasm of digestive organs * F17.200 Nicotine dependence, unspecified, uncomplicated Functional Status Description No Information Available Mental Status Description No Information Available Referrals Refer to Reason for Referral Status Appt Date Timothy Saldaña D.O. SCHEDULE COLONOSCOPY Scheduled [address] [place] [address] [phone]
--- OUTSIDE RECORDS SUMMARY | 2021-04-07 11:16 | CCD ---
Author Author [facility] Organization [facility] Address Unknown Phone Unavailable Care Team Providers Care Pain Medicine Physician Name Role Phone Russ Junior Unavailable PROBLEMS Type Condition ICD9-CM Code [id number] Code Onset Dates Condition S tatus W/U Status Risk SNOMED Code Notes Problem Personal history of malignant neoplasm of cervix uteri Z85.41 Active confirmed 879512153 Problem Lumbago with sciatica, right side M54.41 Active confirmed 174953760 Problem Right thyroid nodule E04.1 Active confirmed 361198500 Problem Dysphagia, unspecified type R13.10 Active confirmed 32038573 Problem Other chronic pain G89.29 Active confirmed 8 1122204 Problem Incontinence of feces, unspecified fecal incontinence type R15.9 Active confirmed 81484017 Problem Nicotine use disorder F17.200 Active confirmed 48427488 Problem Gastroesophageal reflux disease without esophagitis K21.9 Active confirmed 606049861 Problem 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 Active confirmed 1 8394216 Problem Urinary, incontinence, stress female N39.3 Act radha confirmed 37720676 Problem Mixed hyperlipidemia E78.2 Active confirmed 425024157 Problem QUIN (stress urinary incontinence, female) N39.3 Active confirmed 17793896 Problem 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 Ac tive confirmed 314066277333351 Problem Pure hypercholesterolemia E78.00 Active confirmed 947300023 Problem History of cervical cancer Z85.41 Active confirmed 225667086 Problem History of therapeutic radiation Z92.3 Active conf irmed 989103095 ALLERGIES No Known Allergies ENCOUNTERS from 1960 to 2021-03-04 Encounter Location Date Provider Diagnosis [phone] [place] [address] Feb, Russ Junior Chewing difficulty K08.89 IMMUNIZATIONS Vaccine Route Administration Date Status COVID-19 [...] RESULTS No Results REASON FOR VISIT referral MEDICAL (GENERAL) HISTORY Type Description Date Medical History Hx of cervical cancer 2004 - [facility], [place], [place] Medical History Abnormal cytology of bx of mouth - 2004. No follow up Medical History Colonoscopy done 7 years ago in [place] was normal (due for next in 2020) [...] Treatment Notes Treatm ent Clinical Notes Feb, Chewing difficulty (ICD-10 - K08.89) PLAN OF TREATMENT Medication Medication Name Sig Start Date Stop Date tiZANidine HCl 4 MG 1 tablet as needed Orally at night befor e bed for 30 days Feb, Meloxicam 15 MG 1 tablet with dinner Orally Once a day f or 30 day(s) Feb, Treatment Notes Test Name Order Date PLZ MANDIBLE COMPLETE 2021-03-02 Next Appt Details Provider Name:Soto Seymour Dalemarlenytwin, 6 09:00:00 AM, [address], , [place], [address], Insurance Providers Payer Name Payer Address Payer Phone Insured Name Patient Relati onship to Insured Coverage Start Date Coverage End Date [employer] CLAIMS DEPT [address] [place] [phone] MARCUS CAMPBELL self
--- OUTSIDE RECORDS SUMMARY | 2021-04-07 11:16 | CCD ---
Author Author [facility] Organization [facility] Address Unknown Phone Unavailable Care Team Providers Care Senior Web Designer Name Role Phone Willian Andino Unavailable PROBLEMS Type Condition ICD9-CM Code IIN14-HK Code Onset Dates Condition S tatus W/U Status Risk SNOMED Code Notes Problem Personal history of malignant neoplasm of cervix uteri Z85.41 Active confirmed 940451070 Problem Lumbago with sciatica, right side M54.41 Active confirmed 450904948 Problem Right thyroid nodule E04.1 Active confirmed 104788888 Problem Dysphagia, unspecified type R13.10 Active confirmed 52724262 Problem Other chronic pain G89.29 Active confirmed 8 3361398 Problem Incontinence of feces, unspecified fecal incontinence type R15.9 Active confirmed 49429882 Problem Nicotine use disorder F17.200 Active confirmed 47392602 Problem Gastroesophageal reflux disease without esophagitis K21.9 Active confirmed 180476595 Problem 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 Active confirmed 1 8702032 Problem Urinary, incontinence, stress female N39.3 Act radha confirmed 63515658 Problem Mixed hyperlipidemia E78.2 Active confirmed 639964053 Problem QUIN (stress urinary incontinence, female) N39.3 Active confirmed 05559045 Problem 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 Ac tive confirmed 714067893310884 Problem Pure hypercholesterolemia E78.00 Active confirmed 670090424 Problem History of cervical cancer Z85.41 Active confirmed 742834524 Problem History of therapeutic radiation Z92.3 Active conf irmed 270125945 ALLERGIES No Known Allergies ENCOUNTERS from 1960 to 2021-02-25 Encounter Location Date Provider Diagnosis [facility] Urology [address] [phone] [place] [address] Feb, Willian Andino IMMUNIZATIONS Vaccine Route Administration Date Status COVID-19 [...] Information RESULTS No Results REASON FOR VISIT No Information MEDICAL (GENERAL) HISTORY Type Description Date Medical History Hx of cervical cancer 2004 - [facility], [place], [place] Medical History Abnormal cytology of bx [...] day(s) Feb, Next Appt Details Provider Name:Soto Dawn Edwards, 2022-01- 6 09:00:00 AM, [address], , [place], [address], Insurance Providers Payer Name Payer Address Payer Phone Insured Name Patient Relati onship to Insured Coverage Start Date Coverage End Date [facility] CORPORATE CLAIMS DEPT [address] [place] [phone] MARCUS CAMPBELL self
--- OUTSIDE RECORDS SUMMARY | 2021-04-07 11:17 | CCD ---
Author Author [facility] Organization [facility] Address Unknown Phone Unavailable Care Team Providers Care Erosion Control Coordinator Name Role Phone Soto Edwards Unavailable PROBLEMS Type Condition ICD9-CM Code AXN92-CP Code Onset Dates Condition S tatus W/U Status Risk SNOMED Code Notes Problem Right thyroid nodule E04.1 Active confirmed 854508512 Problem Personal history of malignant neoplasm of cervix uteri Z85.41 Active confirmed 173946753 Problem Other chronic pain G89.29 Active confirmed 8 3156267 Problem Lumbago with sciatica, right side M54.41 Active confirmed 135068240 Problem QUIN (stress urinary incontinence, female) N39.3 Active confirmed 13064357 Problem Urinary, incontinence, stress female N39.3 Act radha confirmed 04173362 Problem Nicotine use disorder F17.200 Active confirmed 53606117 Problem History of therapeutic radiation Z92.3 Active conf irmed 735975693 Problem Incontinence of feces, unspecified fecal incontinence type R15.9 Active confirmed 61444514 Problem History of cervical cancer Z85.41 Active confirmed 193431284 Problem Dysphagia, unspecified type R13.10 Active confirmed 34589901 Problem Nicotine dependence with current use F17.200 Act radha confirmed 038387473 Problem Gastroesophageal reflux disease without esophagitis K21.9 Active confirmed 899388677 Problem 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 Ac tive confirmed 190261083692192 Problem Pure hypercholesterolemia E78.00 Active confirmed 215203797 ALLERGIES No Known Allergies ENCOUNTERS from 1960 to 2021-01-14 Encounter Location Date Provider Diagnosis [facility] Urology [id number] [place] [address] [place] [address] Dec, Soto Dalebacilio IMMUNIZATIONS Vaccine Route Administration Date Status Influenza [...] Notes Start Da te End Date Status Omeprazole 20 MG 1 capsule 30 minutes before morning meal Orally Once a day for 30 day(s) Active Gabapentin 400 MG TAKE 1 CAPSULE BY MOUTH THREE TIMES DAILY Oral for 30 Active Atorvastatin Calcium 10 MG 1 tablet Orally Once a day for 30 day (s) Jul, Active Xanax 1 mg 1 tablet Orally four times daily Active traZODone HCl 50 MG 0.5 tablet in morning Orally Once a day Active PROCEDURES No Information RESULTS No Results REASON FOR VISIT 01/22/2021 appt MEDICAL (GENERAL) HISTORY Type Description Date Medical History Cancer of Cervix 2004 - [facility], [place], [place] Medical History Abnormal cytology of bx of mouth - 2004. No follow up Medical History Colonoscopy done 7 years ago was normal (due for next in 2020) Surgical History left breast biopsy, marker placed 2004 Surgical History implants placed in cervix x 2, also had 34 radiation treatments to pelvic area, 4 chemotherapy treatments 2004 Surgical History Pin in Rt ankle Goals Section No Information Health Concerns No Information MEDICAL EQUIPMENT No Information MENTAL STATUS No Information FUNCTIONAL STATUS No Information ASSESSMENTS No Information PLAN OF TREATMENT Next Appt Details Provider Name:Soto Edwards, 3 08:30:00 AM, [address] [facility] [address], , [place], [address], Provider Name:Russ Junior, 2021-02-19 01 :00:00 PM, [address], , [place], [address], Insurance Providers Payer Name Payer Address Payer Phone Insured Name Patient Relati onship to Insured Coverage Start Date Coverage End Date [facility] [address] [facility] [phone] MARCUS CAMPBELL self
--- OUTSIDE RECORDS SUMMARY | 2021-04-07 11:17 | CCD ---
Author Author [facility] Organization [facility] Address Unknown Phone Unavailable Care Team Providers Care Equipment Inspector Name Role Phone Tovar, L Ira RPA Unavailable Unavailable Tovar, L Ira RPA Unavailable Unavailable Tovar, L Ira RPA Unavailable Unavailable Tovar, L Ira RPA Unavailable Unavailable Tovar, L Ira RPA Unavailable Unavailable Tovar, L Ira RPA Unavailable Unavailable Tovar, L Ira RPA Unavailable Unavailable Tovar, L Ira RPA Unavailable Unavailable Tovar, L Ira RPA Unavailable Unavailable Tovar, L Ira RPA Unavailable Unavailable Tovar, L Ira RPA Unavailable Unavailable Tovar, L Ira RPA Unavailable Unavailable Tovar, L Ira RPA Unavailable Unavailable Tovar, L Ira RPA Unavailable Unavailable Tovar, L Ira RPA Unavailable Unavailable Tovar, L Ira RPA Unavailable Unavailable Tovar, L Ira RPA Unavailable Unavailable Tovar, L Ira RPA Unavailable Unavailable Tovar, L Ira RPA Unavailable Unavailable Tovar, L Ira RPA Unavailable Unavailable Tovar, L Ira RPA Unavailable Unavailable Tovar, L Ira RPA Unavailable Unavailable Tovar, L Ira RPA Unavailable Unavailable Tovar, L Ira RPA Unavailable Unavailable Tovar, L Ira RPA Unavailable Unavailable Tovar, L Ira RPA Unavailable Unavailable Tovar, L Ira RPA Unavailable Unavailable Tovar, L Ira RPA Unavailable Unavailable Tovar, L Ira RPA Unavailable Unavailable Tovar, L Ira RPA Unavailable Unavailable Tovar, L Ira RPA Unavailable Unavailable Tovar, L Ira RPA Unavailable Unavailable Re-disclosure Warning The records that you are about to access may contain information from federally-assisted alcohol or drug abuse programs. If such information is present, then the following federally mandated warning applies: This information has been disclosed to you from records protected by federal confidentiality rules (42 CFR part 2). The federal rules prohibit you from making any further disclosure of this information unless further disclosure is expressly permitted by the written consent of the person to whom it pertains or as otherwise permitted by 42 CFR part 2. A general authorization for the release of medical or other information is NOT sufficient for this purpose. The Federal rules restrict any use of the information to criminally investigate or prosecute any alcohol or drug abuse patient.The records that you are about to access may contain highly sensitive health information, the redisclosure of which is protected by Article 27-F of the [facility] Public Health law. If you continue you may have access to information: Regarding HIV / AIDS; Provided by facilities licensed or operated by the [facility] Office of Mental Health; or Provided by the [facility] Office for People With Developmental Disabilities. If such information is present, then the following [facility] mandated warning applies: This information has been disclosed to you from confidential records which are protected by state law. State law prohibits you from making any further disclosure of this information without the specific written consent of the person to whom it pertains, or as otherwise permitted by law. Any unauthorized further disclosure in violation of state law may result in a fine or alf sentence or both. A general authorization for the release of medical or other information is NOT sufficient authorization for further disc losure. Family History Family Member Name Family Member Gender Family Member Status Date o f Status Description Data Source(s) Unknown Unknown Problem MEDENT ([facility]) Unknown Male Problem MEDENT ([facility] ) Encounters Encounter Providers Location Date Indications Data Source(s ) Outpatient Attender: Ira Nuñez/Jie/Maurice/Venita rahman 03/11/2021 09:45:00 AM EDT MEDENT ([facility] [place] [address] [facility] [address] 03/02/2021 12:00:00 AM EDT eCW1 ([facility]) [place] [address] [facility] [place] [address] 03/02/2021 12:00:00 AM EDT [facility]1 [facility] [place] [place] [address] [facility] [place] [address] 02/24/2021 12:00:00 AM EDT [facility]CW1 [facility] [place] [address] [facility] [place] [address] 02/19/2021 12:00:00 AM EDT eCW1 ([facility] [place] [address] [facility] [address] 01/14/2021 12:00:00 AM EDT eCW1 ([facility]) Outpatient [address] [facility] [place] [address] 01/07/2021 12:00:00 AM EDT eCW1 ([facility]) Outpatient [address] [facility] [place] [address] 12/22/2020 12:00:00 AM EDT eCW1 ([facility]) [place] [address] [facility] [address] 08/12/2020 12:00:00 AM EDT eCW1 ([facility]) Unknown [address] [facility] [place] [address] 08/04/2020 12:00:00 AM EDT eCW1 [facility] [place] (Cysto1) Urology [address] [place] [address] 07/29/2020 12:00:00 AM EST [facility] [place] [address] [facility] [address] 07/17/2020 12:00:00 AM EST eCW1 ([facility]) [place] [address] [facility] [address] 06/12/2020 12:00:00 AM EST eCW1 ([facility]) Out[place] [address] [facility] [address] 06/04/2020 12:00:00 AM EST eCW1 ([facility]) Out[place] [address] [facility] [address] 05/05/2020 12:00:00 AM EST eCW1 ([facility]) Immunizations Vaccine Date Status Description Data Source(s) influenza, recombinant, quadrIvalent,injectable, prese rvative free 02/19/2021 04:25:00 PM EDT completed eCW1 ([facility]) influenza, recombinant, quadrIvalent,injectable, prese rvative free 02/19/2021 04:25:00 PM EDT completed eCW1 ([facility]) influenza, recombinant, quadrIvalent,injectable, prese rvative free 02/19/2021 04:25:00 PM EDT completed eCW1 ([facility]) influenza, recombinant, quadrIvalent,injectable, prese rvative free 02/19/2021 04:25:00 PM EDT completed eCW1 ([facility]) COVID-19 dose #1 given elsewhere Unspecified 09/13/2020 01:1 4:00 PM EDT completed eCW1 ([facility]) COVID-19 dose #1 given elsewhere Unspecified 09/13/2020 01:1 4:00 PM EDT completed eCW1 ([facility]) COVID-19 dose #1 given elsewhere Unspecified 09/13/2020 01:1 4:00 PM EDT completed eCW1 ([facility]) COVID-19 dose #1 given elsewhere Unspecified 09/13/2020 01:1 4:00 PM EDT completed eCW1 ([facility]) COVID-19 VACCINE Lexy 08/23/2020 12:00:00 AM EDT completed NYSIIS Vaccine Series Complete: YESThis Data wa s Submitted to [facility] Via [employer]. influenza, recombinant, quadrIvalent,injectable, prese rvative free 05/05/2020 03:31:00 PM EST completed eCW1 ([facility]) influenza, recombinant, quadrIvalent,injectable, prese rvative free 05/05/2020 03:31:00 PM EST completed eCW1 ([facility]) influenza, recombinant, quadrIvalent,injectable, prese rvative free 05/05/2020 03:31:00 PM EST completed eCW1 ([facility]) influenza, recombinant, quadrIvalent,injectable, prese rvative free 05/05/2020 03:31:00 PM EST completed eCW1 ([facility]) influenza, recombinant, quadrIvalent,injectable, prese rvative free 05/05/2020 03:31:00 PM EST completed eCW1 ([facility]) influenza, recombinant, quadrIvalent,injectable, prese rvative free 05/05/2020 03:31:00 PM EST completed eCW1 ([facility]) influenza, recombinant, quadrIvalent,injectable, prese rvative free 05/05/2020 03:31:00 PM EST completed eCW1 ([facility]) influenza, recombinant, quadrIvalent,injectable, prese rvative free 05/05/2020 03:31:00 PM EST completed eCW1 ([facility]) influenza, recombinant, quadrIvalent,injectable, prese rvative free 05/05/2020 03:31:00 PM EST completed eCW1 ([facility]) influenza, recombinant, quadrIvalent,injectable, prese rvative free 05/05/2020 03:31:00 PM EST completed eCW1 ([facility]) influenza, recombinant, quadrIvalent,injectable, prese rvative free 05/05/2020 03:31:00 PM EST completed eCW1 ([facility]) influenza, recombinant, quadrIvalent,injectable, prese rvative free 05/05/2020 03:31:00 PM EST completed eCW1 ([facility]) influenza, recombinant, quadrIvalent,injectable, prese rvative free 05/05/2020 03:31:00 PM EST completed eCW1 ([facility]) influenza, recombinant, quadrIvalent,injectable, prese rvative free 05/05/2020 03:31:00 PM EST completed eCW1 ([facility]) Medications Medication Brand Name Start Date Product Form Dose Route Admi nistrative Instructions Pharmacy Instructions Status Indications Reaction Description Data Source(s) tizanidine 4 MG Oral Tablet tiZANidine HCl 4 MG tiZANidine H Cl 4 MG 02/19/2021 12:00:00 AM EDT 1.0 {tablet_as_needed} active tiZANidine HCl 4 MG eCW1 ([facility]) tizanidine 4 MG Oral Tablet tiZANidine HCl 4 MG tiZANidine H Cl 4 MG 02/19/2021 12:00:00 AM EDT 1.0 {tablet_as_needed} active tiZANidine HCl 4 MG eCW1 ([facility]) meloxicam 15 MG Oral Tablet Meloxicam 15 MG Meloxicam 15 MG 02/19/2021 12:00:00 AM EDT active Meloxicam 15 MG e CW1 ([facility]) tizanidine 4 MG Oral Tablet tiZANidine HCl 4 MG tiZANidine H Cl 4 MG 02/19/2021 12:00:00 AM EDT 1.0 {tablet_as_needed} active tiZANidine HCl 4 MG eCW1 ([facility]) meloxicam 15 MG Oral Tablet Meloxicam 15 MG Meloxicam 15 MG 02/19/2021 12:00:00 AM EDT active Meloxicam 15 MG e CW1 ([facility]) meloxicam 15 MG Oral Tablet Meloxicam 15 MG Meloxicam 15 MG 02/19/2021 12:00:00 AM EDT active Meloxicam 15 MG e CW1 ([facility]) tizanidine 4 MG Oral Tablet tiZANidine HCl 4 MG tiZANidine H Cl 4 MG 02/19/2021 12:00:00 AM EDT 1.0 {tablet_as_needed} active tiZANidine HCl 4 MG eCW1 ([facility]) meloxicam 15 MG Oral Tablet Meloxicam 15 MG Meloxicam 15 MG 02/19/2021 12:00:00 AM EDT active Meloxicam 15 MG e CW1 ([facility]) atorvastatin 10 MG Oral Tablet Atorvastatin Calcium 10 MG Atorvastatin Calcium 10 MG 08/12/2020 12:00:00 AM EDT 1.0 {tablet} activ e Atorvastatin Calcium 10 MG eCW1 ([facility]) atorvastatin 10 MG Oral Tablet Atorvastatin Calcium 10 MG Atorvastatin Calcium 10 MG 08/12/2020 12:00:00 AM EDT 1.0 {tablet} activ e Atorvastatin Calcium 10 MG eCW1 ([facility]) atorvastatin 10 MG Oral Tablet Atorvastatin Calcium 10 MG Atorvastatin Calcium 10 MG 08/12/2020 12:00:00 AM EDT 1.0 {tablet} activ e Atorvastatin Calcium 10 MG eCW1 ([facility]) atorvastatin 10 MG Oral Tablet Atorvastatin Calcium 10 MG Atorvastatin Calcium 10 MG 08/12/2020 12:00:00 AM EDT 1.0 {tablet} activ e Atorvastatin Calcium 10 MG eCW1 ([facility]) atorvastatin 10 MG Oral Tablet Atorvastatin Calcium 10 MG Atorvastatin Calcium 10 MG 08/12/2020 12:00:00 AM EDT 1.0 {tablet} activ e Atorvastatin Calcium 10 MG eCW1 ([facility]) atorvastatin 10 MG Oral Tablet Atorvastatin Calcium 10 MG Atorvastatin Calcium 10 MG 08/12/2020 12:00:00 AM EDT 1.0 {tablet} activ e Atorvastatin Calcium 10 MG eCW1 ([facility]) atorvastatin 10 MG Oral Tablet Atorvastatin Calcium 10 MG Atorvastatin Calcium 10 MG 08/12/2020 12:00:00 AM EDT 1.0 {tablet} activ e Atorvastatin Calcium 10 MG eCW1 ([facility]) atorvastatin 10 MG Oral Tablet Atorvastatin Calcium 10 MG Atorvastatin Calcium 10 MG 08/12/2020 12:00:00 AM EDT 1.0 {tablet} activ e Atorvastatin Calcium 10 MG eCW1 ([facility]) Cyclobenzaprine hydrochloride 5 MG Oral Tablet Cyclobe nzaprine HCl 5 MG Cyclobenzaprine HCl 5 MG 05/05/2020 12:00:00 AM EST 1.0 {tablet_at_bedtime_as_needed} active Cy clobenzaprine HCl 5 MG eCW1 ([facility]) Cyclobenzaprine hydrochloride 5 MG Oral Tablet Cyclobe nzaprine HCl 5 MG Cyclobenzaprine HCl 5 MG 05/05/2020 12:00:00 AM EST 1.0 {tablet_at_bedtime_as_needed} active Cy clobenzaprine HCl 5 MG eCW1 ([facility]) Naproxen 500 MG Oral Tablet Naproxen 500 MG 05/05/2020 12:00:00 AM EST active Naproxen 500 MG eCW1 ([facility]) Omeprazole 20 MG Delayed Release Oral Capsule Omeprazole 20 MG 05/05/2020 12:00:00 AM EST active Omeprazo le 20 MG eCW1 ([facility]) Omeprazole 20 MG Delayed Release Oral Capsule Omeprazole 20 MG 05/05/2020 12:00:00 AM EST active Omeprazo le 20 MG eCW1 ([facility]) Omeprazole 20 MG Delayed Release Oral Capsule Omeprazole 20 MG 05/05/2020 12:00:00 AM EST active Omeprazo le 20 MG eCW1 ([facility]) Naproxen 500 MG Oral Tablet Naproxen 500 MG 05/05/2020 12:00:00 AM EST active Naproxen 500 MG eCW1 ([facility]) Cyclobenzaprine hydrochloride 5 MG Oral Tablet Cyclobe nzaprine HCl 5 MG Cyclobenzaprine HCl 5 MG 05/05/2020 12:00:00 AM EST 1.0 {tablet_at_bedtime_as_needed} active Cy clobenzaprine HCl 5 MG eCW1 ([facility]) Naproxen 500 MG Oral Tablet Naproxen 500 MG 05/05/2020 12:00:00 AM EST active Naproxen 500 MG eCW1 ([facility]) Cyclobenzaprine hydrochloride 5 MG Oral Tablet Cyclobe nzaprine HCl 5 MG Cyclobenzaprine HCl 5 MG 05/05/2020 12:00:00 AM EST 1.0 {tablet_at_bedtime_as_needed} active Cy clobenzaprine HCl 5 MG eCW1 ([facility]) Naproxen 500 MG Oral Tablet Naproxen 500 MG 05/05/2020 12:00:00 AM EST active Naproxen 500 MG eCW1 ([facility]) Naproxen 500 MG Oral Tablet Naproxen 500 MG 05/05/2020 12:00:00 AM EST active Naproxen 500 MG eCW1 ([facility]) Cyclobenzaprine hydrochloride 5 MG Oral Tablet Cyclobe nzaprine HCl 5 MG Cyclobenzaprine HCl 5 MG 05/05/2020 12:00:00 AM EST 1.0 {tablet_at_bedtime_as_needed} active Cy clobenzaprine HCl 5 MG eCW1 ([facility]) Omeprazole 20 MG Delayed Release Oral Capsule Omeprazole 20 MG 05/05/2020 12:00:00 AM EST active Omeprazo le 20 MG eCW1 ([facility]) Omeprazole 20 MG Delayed Release Oral Capsule Omeprazole 20 MG 05/05/2020 12:00:00 AM EST active Omeprazo le 20 MG eCW1 ([facility]) Cyclobenzaprine hydrochloride 5 MG Oral Tablet Cyclobe nzaprine HCl 5 MG Cyclobenzaprine HCl 5 MG 05/05/2020 12:00:00 AM EST 1.0 {tablet_at_bedtime_as_needed} active Cy clobenzaprine HCl 5 MG eCW1 ([facility]) Naproxen 500 MG Oral Tablet Naproxen 500 MG 05/05/2020 12:00:00 AM EST active Naproxen 500 MG eCW1 ([facility]) Omeprazole 20 MG Delayed Release Oral Capsule Omeprazole 20 MG 05/05/2020 12:00:00 AM EST active Omeprazo le 20 MG eCW1 ([facility]) Insurance Providers Payer name Policy type / Coverage type Policy ID Covered libertarian ID Covered libertarian's relationship to soares Policy Soares Plan Information [facility] COMMUNITY PLAN [facility] [id number] [facility] I [id number] Self [id number] [facility] [id number] Self [id number] Managed Care - [facility] Community Plan P [id number] S [id number] Medicaid S [id number] S [id number] [facility] COMMUNITY PLAN [facility] [id number] SP [id number] ANSI-Medicaid [id number] ANSI-Medicaid [id number] ANSI-Medicaid [id number] ANSI-Medicaid [id number] Medicaid P [id number] S [id number] ANSI-Medicaid [id number] ANSI-Medicaid [id number] ANSI-Medicaid [id number] ANSI-Medicaid [id number] [facility] Maintenance Organization ([facility] [id number] [facility] [id number] ANSI-Medicaid [id number] ANSI-Medicaid [id number] ANSI-Medicaid [id number] [facility] Commercial [id number] Self [id number] ANSI-Medicaid [id number] [facility] Commercial [id number] Self [id number] ANSI-Medicaid [id number] ANSI-Medicaid [id number] ANSI-Medicaid [id number] [facility] [id number] [facility] Health Maintenance [facility] ([facility] [id number] Self [id number] [facility] Health Maintenance Organization ([facility] [id number] Self [id number] [facility] Health Maintenance Organization ([facility] [id number] Self [id number] MEDICAID [id number] SP [id number] MEDICAID [id number] S [id number] Medicaid Dental S [id number] S [id number] MARTA [id number] SP [id number] UNHC COMMUNITY PLAN [facility] [id number] SP [id number] [facility] COMMUNITY PLAN [facility] [id number] SP [id number] [facility] O [id number] S [id number] [employer] COMMUNITY PLAN [facility] [id number] SP [id number] Problems, Conditions, and Diagnoses Code Display Name Description Problem Type Effective Dates Data Source(s) F41.9 [id number] Anxiety Problem 03/14/2021 12:00:00 AM ED T eCW1 ([facility]) E78.2 [id number] Mixed hyperlipidemia Problem 02/23/2021 12:0 0:00 AM EDT eCW1 ([facility]) N30.40 [id number] Radiation cystitis Problem 02/19/2021 12:00: 00 AM EDT eCW1 ([facility]) Z92.3 [id number] History of therapeutic radiation Problem 01/07/2021 12:00:00 AM EDT eCW1 ([facility]) Z85.41 [id number] History of cervical cancer Problem 12:00:00 AM EDT eCW1 ([facility]) E78.00 [id number] Pure hypercholesterolemia Problem 08/12/2020 12:00:00 AM EDT eCW1 ([facility]) N30.41 [id number] 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 Problem 07/29/2020 12:00:00 AM EST eCW1 ([facility]) K21.9 [id number] Gastroesophageal reflux disease without e sophagitis Problem 05/05/2020 12:00:00 AM EST eCW1 ([facility]) Surgeries/Procedures Procedure Description Date Indications Data Source(s) OFFICE OUTPATIENT NEW 45 MINUTES 03/11/2021 12:00:00 A M EDT MEDENT ([facility] ) Imm: Flublok Quadrivalent 18 years & older 0.5mL IM Influenz a 02/19/2021 12:00:00 AM EDT eCW1 ([facility]) Immunization: Flublok Quadrivalent (18 years & older) 0.5mL IM (Influenza) 05/05/2020 12:00:00 AM EST eCW1 ([facility]) Results ID Date Data Source NON CLIENT CUSTOMER MANAGER CYTOLOGY REQ FOR SERVI 01/07/2021 12:00:00 AM EDT eC W1 ([facility]) Name Value Range Interpretation Code Description Data Hollie rce(s) Supporting Document(s) URINE eCW1 ([facility]) ID Date Data Source UA URINALYSIS 01/07/2021 12:00:00 AM EDT eCW1 ([facility]) Name Value Range Interpretation Code Description Data Hollie rce(s) Supporting Document(s) UA URINALYSIS eCW1 ([facility]) Procedure Social History Code Duration Value Status Description Data Source(s ) Smoking 03/14/2021 12:00:00 AM EDT Current Smoker completed Curre nt Smoker eCW1 ([facility]) Smoking 02/23/2021 12:00:00 AM EDT Current Smoker completed Curre nt Smoker eCW1 ([facility]) Smoking 02/23/2021 12:00:00 AM EDT Current Smoker completed Curre nt Smoker eCW1 ([facility]) Smoking 02/23/2021 12:00:00 AM EDT Current Smoker completed Curre nt Smoker eCW1 ([facility]) Smoking 01/22/2021 12:00:00 AM EDT Current Smoker completed Curre nt Smoker eCW1 ([facility]) Smoking 01/07/2021 12:00:00 AM EDT Current Smoker completed Curre nt Smoker eCW1 ([facility]) Smoking 12/23/2020 12:00:00 AM EDT Current Smoker completed Curre nt Smoker eCW1 ([facility]) Smoking 08/12/2020 12:00:00 AM EDT Current Smoker completed Curre nt Smoker eCW1 ([facility]) Smoking 08/04/2020 12:00:00 AM EDT Current Smoker completed Curre nt Smoker eCW1 ([facility]) Smoking 07/29/2020 12:00:00 AM EST Current Smoker completed Curre nt Smoker eCW1 ([facility]) Smoking 06/04/2020 12:00:00 AM EST Current Smoker completed Curre nt Smoker eCW1 ([facility]) Smoking 06/04/2020 12:00:00 AM EST Current Smoker completed Curre nt Smoker eCW1 ([facility]) Smoking 06/04/2020 12:00:00 AM EST Current Smoker completed Curre nt Smoker eCW1 ([facility]) Smoking 05/05/2020 12:00:00 AM EST Current Smoker completed Curre nt Smoker eCW1 ([facility]) Vital Signs ID Date Data Source UNK Name Value Range Interpretation Code Description Data Source(s) [place] body weight 115 [lb_av] 115 [lb_av] [facility] Systolic blood pressure 104 mm[Hg] 104 mm[Hg] [facility] Diastolic blood pressure 68 mm[Hg] 68 mm[Hg] [facility] ([facility]) Body temperature 98.4 [degF] 98.4 [degF] [facility] ([facility]) Body height 63 [in_i] 63 [in_i] [facility] ([facility]) 5'3" Body weight 128.38 [lb_av] 128.38 [lb_av] [facility] T ([facility]) Body mass index (BMI) [Ratio] 22.7 kg/m2 22.7 k g/m2 [facility] ([facility]) Body weight 58.231 kg 58.231 kg [facility] ([facility] ) Body surface area Derived from formula 1.60 m2 1.60 m2 MEDENT ([facility], ) Body weight 124.4 [lb_av] 124.4 [lb_av] eCW1 ([facility]) Body weight 56.43 kg 56.43 kg eCW1 ([facility]) Body height 63.5 [in_i] 63.5 [in_i] eCW1 ([facility]) Body mass index (BMI) [Ratio] 21.69 kg/m2 21.69 kg/m2 eCW1 ([facility]) Heart rate 96 /min 96 /min eCW1 ([facility]) Respiratory rate 18 /min 18 /min eCW1 ([facility]) Body temperature 97.7 [degF] 97.7 [degF] eCW1 ( [facility]) Systolic blood pressure 118 mm[Hg] 118 mm[Hg] e CW1 ([facility]) Diastolic blood pressure 60 mm[Hg] 60 mm[Hg] eCW1 ([facility]) Body weight 126 [lb_av] 126 [lb_av] eCW1 ([facility]) Body weight 57.15 kg 57.15 kg eCW1 ([facility]) Body height 63.5 [in_i] 63.5 [in_i] eCW1 ([facility]) Body mass index (BMI) [Ratio] 21.97 kg/m2 21.97 kg/m2 eCW1 ([facility]) Heart rate 83 /min 83 /min eCW1 ([facility]) Respiratory rate 16 /min 16 /min eCW1 ([facility]) Body temperature 97.1 [degF] 97.1 [degF] eCW1 ( [facility]) Systolic blood pressure 80 mm[Hg] 80 mm[Hg] e CW1 ([facility]) Diastolic blood pressure 46 mm[Hg] 46 mm[Hg] eCW1 ([facility]) Body weight 126.8 [lb_av] 126.8 [lb_av] eCW1 ([facility]) Body weight 57.52 kg 57.52 kg eCW1 ([facility]) Body height 63.5 [in_i] 63.5 [in_i] eCW1 ([facility]) Body mass index (BMI) [Ratio] 22.11 kg/m2 22.11 kg/m2 eCW1 ([facility]) Heart rate 95 /min 95 /min eCW1 ([facility]) Respiratory rate 18 /min 18 /min eCW1 ([facility]) Body temperature 97.6 [degF] 97.6 [degF] eCW1 ( [facility]) Systolic blood pressure 106 mm[Hg] 106 mm[Hg] e CW1 ([facility]) Diastolic blood pressure 70 mm[Hg] 70 mm[Hg] eCW1 ([facility]) Body weight 135 [lb_av] 135 [lb_av] eCW1 ([facility]) Body height 63.5 [in_i] 63.5 [in_i] eCW1 ([facility]) Body mass index (BMI) [Ratio] 23.54 kg/m2 23.54 kg/m2 eCW1 ([facility]) Heart rate 80 /min 80 /min eCW1 ([facility]) Respiratory rate 18 /min 18 /min eCW1 ([facility]) Body temperature 97.3 [degF] 97.3 [degF] eCW1 ( [facility]) Systolic blood pressure 118 mm[Hg] 118 mm[Hg] e CW1 ([facility]) Diastolic blood pressure 68 mm[Hg] 68 mm[Hg] eCW1 ([facility]) Body weight 126 [lb_av] 126 [lb_av] eCW1 ([facility]) Body height 63.5 [in_i] 63.5 [in_i] eCW1 ([facility]) Body mass index (BMI) [Ratio] 21.97 kg/m2 21.97 kg/m2 eCW1 ([facility]) Heart rate 91 /min 91 /min eCW1 ([facility]) Respiratory rate 18 /min 18 /min eCW1 ([facility]) Systolic blood pressure 106 mm[Hg] 106 mm[Hg] e CW1 ([facility]) Diastolic blood pressure 64 mm[Hg] 64 mm[Hg] eCW1 ([facility]) Body weight 127.6 [lb_av] 127.6 [lb_av] eCW1 ([facility]) Body height 63.5 [in_i] 63.5 [in_i] eCW1 ([facility]) Body mass index (BMI) [Ratio] 22.25 kg/m2 22.25 kg/m2 eCW1 ([facility]) Heart rate 89 /min 89 /min eCW1 ([facility]) Respiratory rate 18 /min 18 /min eCW1 ([facility]) Body temperature 97.2 [degF] 97.2 [degF] eCW1 ( [facility]) Systolic blood pressure 116 mm[Hg] 116 mm[Hg] e CW1 ([facility]) Diastolic blood pressure 72 mm[Hg] 72 mm[Hg] eCW1 ([facility]) Patient Treatment Plan of Care Planned Activity Planned Date Details Description Data Source (s) meloxicam 15 MG Oral Tablet 02/19/2021 12:00:00 AM EDT eCW1 ([facility]) tizanidine 4 MG Oral Tablet 02/19/2021 12:00:00 AM EDT eCW1 ([facility]) meloxicam 15 MG Oral Tablet 02/19/2021 12:00:00 AM EDT eCW1 ([facility]) tizanidine 4 MG Oral Tablet 02/19/2021 12:00:00 AM EDT eCW1 ([facility]) meloxicam 15 MG Oral Tablet 02/19/2021 12:00:00 AM EDT eCW1 ([facility]) tizanidine 4 MG Oral Tablet 02/19/2021 12:00:00 AM EDT eCW1 ([facility]) meloxicam 15 MG Oral Tablet 02/19/2021 12:00:00 AM EDT eCW1 ([facility]) tizanidine 4 MG Oral Tablet 02/19/2021 12:00:00 AM EDT eCW1 ([facility]) atorvastatin 10 MG Oral Tablet 08/12/2020 12:00:00 AM EDT eCW1 ([facility]) Naproxen 500 MG Oral Tablet 05/05/2020 12:00:00 AM EST eCW1 ([facility]) Cyclobenzaprine hydrochloride 5 MG Oral Tablet 05/05/2020 12:00:00 AM EST eCW1 ([facility]) Omeprazole 20 MG Delayed Release Oral Capsule 05/05/2020 12:00:00 A M EST eCW1 ([facility])
--- NOTE | 2021-04-07 13:02 | ROOR ---
Patient Name: Em Diaz Procedure Date: 04/07/2021 12:20 PM Date of : 1960 Age: 60 Room: [facility] Gender: Female Note Status: Finalized Procedure: Colonoscopy Indications: Screening for colon cancer: Family history of colorectal cancer in distant relative(s) 60 or older Providers: Damaso Salgado MD Referring MD: Russ Junior Do Requesting Provider: Medicines: Monitored Anesthesia Care Complications: No immediate complications. Procedure: Pre-Anesthesia Assessment: - Prior to the procedure, a History and Physical was performed, and patient medications and allergies were reviewed. The patient is competent. The risks and benefits of the procedure and the sedation options and risks were discussed with the patient. All questions were answered and informed consent was obtained. Patient identification and proposed procedure were verified by the physician, the nurse and the anesthesiologist in the endoscopy suite. Mental Status Examination: alert and oriented. Airway Examination: normal oropharyngeal airway and neck mobility. Respiratory Examination: clear to auscultation. CV Examination: normal. Prophylactic Antibiotics: The patient does not require prophylactic antibiotics. Prior Anticoagulants: The patient has taken no previous anticoagulant or antiplatelet agents. ASA Grade Assessment: II - A patient with mild systemic disease. After reviewing the risks and benefits, the patient was deemed in satisfactory condition to undergo the procedure. The anesthesia plan was to use monitored anesthesia care (MAC). Immediately prior to administration of medications, the patient was re-assessed for adequacy to receive sedatives. The heart rate, respiratory rate, oxygen saturations, blood pressure, adequacy of pulmonary ventilation, and response to care were monitored throughout the procedure. The physical status of the patient was re-assessed after the procedure. The Colonoscope was introduced through the anus and advanced to the cecum, identified by appendiceal orifice and ileocecal valve. The colonoscopy was technically difficult and complex due to poor endoscopic visualization, significant looping and a tortuous colon. Successful completion of the procedure was aided by applying abdominal pressure. The patient tolerated the procedure well. The quality of the bowel preparation was adequate to identify polyps 6 mm and larger in size. Findings: Hemorrhoids were found on perianal exam. A 5 mm polyp was found in the cecum. The polyp was sessile. The polyp was removed with a cold snare. Resection and retrieval were complete. Estimated blood loss was minimal. Three sessile polyps were found in the sigmoid colon and transverse colon. The polyps were 1 to 3 mm in size. These polyps were removed with a cold biopsy forceps. Resection and retrieval were complete. Estimated blood loss was minimal. The retroflexed view of the distal rectum and anal verge was normal and showed no anal or rectal abnormalities. Impression: - Hemorrhoids found on perianal exam. - One 5 mm polyp in the cecum, removed with a cold snare. Resected and retrieved. - Three 1 to 3 mm polyps in the sigmoid colon and in the transverse colon, removed with a cold biopsy forceps. Resected and retrieved. - The distal rectum and anal verge are normal on retroflexion view. Recommendation: - Discharge patient to home (ambulatory). - Repeat colonoscopy in 5 years for surveillance of multiple polyps. Procedure Code(s): --- Professional --- 94174, Colonoscopy, flexible; with removal of tumor(s), polyp(s), or other lesion(s) by snare technique 87453, 59, Colonoscopy, flexible; with biopsy, single or multiple Diagnosis Code(s): --- Professional --- K63.5, Polyp of colon Z12.11, Encounter for screening for malignant neoplasm of colon Z80.0, Family history of malignant neoplasm of digestive organs K64.9, Unspecified hemorrhoids CPT copyright 2019 [employer]. All rights reserved. The codes documented in this report are preliminary and upon marquetry worker review may be revised to meet current compliance requirements. Damaso Salgado MD Damaso Salgado MD 04/07/2021 1:02:26 PM Electronically signed by Damaso Salgado MD Number of Addenda: 0 Note Initiated On: 04/07/2021 12:20 PM Estimated Blood Loss: Estimated blood loss was minimal.
[2021-04-07 13:23] VITALS: BP 121/68
== END 2021-04-07 13:23 | disposition home or self-care (01) ==
LOC: M OPP 11:05
PROVIDERS: ATTEND Surgery
DX: D12.6 Benign neoplasm of colon, unspecified (principal); K64.9 Unspecified hemorrhoids; Z80.0 Family history of malignant neoplasm of digestive organs; Z12.11 Encounter for screening for malignant neoplasm of colon; Z85.41 Personal history of malignant neoplasm of cervix uteri; E78.00 Pure hypercholesterolemia, unspecified; J44.9 Chronic obstructive pulmonary disease, unspecified; F32.A Depression, unspecified; F41.9 Anxiety disorder, unspecified; F17.200 Nicotine dependence, unspecified, uncomplicated; Z79.899 Other long term (current) drug therapy

== ENCOUNTER → 2021-06-11 | Outpatient (CLI) | payer OTHER ==
[~2021-06-11] MED LIST changes: -LIDOCAINE 2% 100MG/5ML SDV (FOR ANES.) As Ordered ONE; -NS 1,000 ML IV ONE; +OMEP-173; -OMEP-218; +TIZA10TA; -TIZA4TAB4; -propofoL 200 MG/20 ML VIAL As Ordered ONE
[2021-06-11 15:40] LABS: CHOLESTEROL RISK RATIO 2.793 (<5)
[2021-06-11 15:54] LABS: HEMOGLOBIN A1c 5.5 %
== END ==
LOC: M PLALAB 12:36
PROVIDERS: ATTEND Family Medicine
DX: E78.2 Mixed hyperlipidemia (principal); Z13.1 Encounter for screening for diabetes mellitus

== ENCOUNTER → 2021-06-30 | Outpatient (CLI) | payer OTHER | LOC: M RAD 13:33 | PROVIDERS: ATTEND Family Medicine | DX: E04.1 Nontoxic single thyroid nodule (principal) ==

== ENCOUNTER → 2021-07-05 | Outpatient (CLI) | payer OTHER | LOC: M RAD 14:14 | PROVIDERS: ATTEND Family Medicine | DX: R91.8 Other nonspecific abnormal finding of lung field (principal); Z12.2 Encounter for screening for malignant neoplasm of respiratory organs ==

== ENCOUNTER → 2021-08-09 | Outpatient (CLI) | payer OTHER | LOC: M WHC 12:15 | PROVIDERS: ATTEND Family Medicine | DX: Z12.31 Encounter for screening mammogram for malignant neoplasm of breast (principal) ==

== ENCOUNTER → 2022-06-02 | Outpatient (CLI) | payer OTHER | LOC: M PLAIMG 11:54 | PROVIDERS: ATTEND Orthopaedic Surgery | DX: M16.0 Bilateral primary osteoarthritis of hip (principal); M85.68 Other cyst of bone, other site; M70.61 Trochanteric bursitis, right hip; M70.62 Trochanteric bursitis, left hip ==

== ENCOUNTER → 2022-09-28 | Outpatient (CLI) | payer OTHER | LOC: M RAD 08:05 | PROVIDERS: ATTEND Student in an Organized Health Care Education/Training Program | DX: Z12.2 Encounter for screening for malignant neoplasm of respiratory organs (principal); Z87.891 Personal history of nicotine dependence; R91.8 Other nonspecific abnormal finding of lung field ==

== ENCOUNTER → 2022-11-07 | Outpatient (CLI) | payer OTHER ==
[~2022-11-07] MED LIST changes: +ALBU2.5V10 INH; +ALPR2TAB3 PO; +ANOR1AER IN; -ATOR1TAB19; +ATOR1TAB19 PO; -GABA-283; +GABA-283 PO; -OMEP-173; +OMEP-173 PO; -TIZA10TA; +TIZA10TA PO; -TRAZ-252; +TRAZ-252 PO
== END ==
LOC: M RAD 10:58
PROVIDERS: ATTEND Internal Medicine Pulmonary Disease
DX: R91.8 Other nonspecific abnormal finding of lung field (principal)

== ENCOUNTER → 2022-11-08 | Outpatient (CLI) | payer OTHER ==
[2022-11-08 13:48] LABS: PLATELET COUNT, AUTOMATED 439 10^3/uL (150-450)
[2022-11-08 13:59] LABS: INR 0.91; PROTHROMBIN TIME 12.4 SECONDS (12.5-14.5)
[2022-11-08 14:00] LABS: PARTIAL THROMBOPLASTIN TIME 31.6 SECONDS (24.8-34.2)
== END ==
LOC: M PLALAB 11:29
PROVIDERS: ATTEND Internal Medicine Pulmonary Disease
DX: R91.8 Other nonspecific abnormal finding of lung field (principal)

== ENCOUNTER 2022-11-16 06:58 | Day surgery (SDC) | payer OTHER ==
[~2022-11-16] VITALS: Ht 160 cm; Wt 54.6 kg
[~2022-11-16 06:58] MED LIST changes: +ALBUTEROL SULFATE 2.5MG/0.5ML INH NEB SOLN INH ONE; +LIDOCAINE PRES-FREE 2% 10ML AMP INH ONE
[2022-11-16] MEDS ORDERED: LR 1,000 ML IV SCH ×2 (07:20→10:15)
[2022-11-16] MEDS ORDERED: propofoL 200 MG/20 ML VIAL As Ordered ONE (07:49)
[2022-11-16] MEDS ORDERED: KETOROLAC 60MG 2ML VIAL As Ordered ONE (07:49)
[2022-11-16] MEDS ORDERED: ROCURONIUM BROMIDE 50MG/5ML VIAL As Ordered ONE (07:49)
[2022-11-16] MEDS ORDERED: ONDANSETRON 4MG 2ML VIAL As Ordered ONE (07:49)
[2022-11-16] MEDS ORDERED: LIDOCAINE 2% 100MG/5ML SDV (FOR ANES.) As Ordered ONE (07:49)
[2022-11-16] MEDS ORDERED: MIDAZOLAM INJ 2MG/2ML VIAL As Ordered ONE (07:49)
[2022-11-16] MEDS ORDERED: SUGAMMADEX SODIUM 500 MG/5 ML VIAL (BRIDION) As Ordered ONE (07:49)
[2022-11-16] MEDS ORDERED: fentaNYL 100 MCG/2 ML INJECTION As Ordered ONE ×2 (07:50→09:33)
[2022-11-16] MEDS ORDERED: THROMBIN 5,000 UNITS VIAL As Ordered ONE (08:32)
[2022-11-16] MEDS ORDERED: CETACAINE SPRAY 5GM As Ordered ONE (08:32)
[2022-11-16] MEDS ORDERED: EPINEPHrine 1MG/10ML SYRINGE 1.5IN As Ordered ONE (08:32)
[2022-11-16] MEDS ORDERED: oxyCODONE 5MG TAB PO PRN (10:15)
[2022-11-16] MEDS ORDERED: ONDANSETRON 4MG 2ML VIAL IV PRN (10:15)
[2022-11-16] MEDS ORDERED: fentaNYL 100 MCG/2 ML INJECTION IV PRN (10:15)
[2022-11-16] MEDS ORDERED: HYDROMORPHONE HCL 0.5 MG/ 0.5 ML SYRINGE IV PRN (10:15)
[2022-11-16 11:33] VITALS: BP 120/60; TEMP 97.9; O2SAT 95
== END 2022-11-16 11:35 | disposition home or self-care (01) ==
LOC: M SDC 06:58
PROVIDERS: ATTEND Internal Medicine Pulmonary Disease
DX: C34.12 Malignant neoplasm of upper lobe, left bronchus or lung (principal); I10 Essential (primary) hypertension; K21.9 Gastro-esophageal reflux disease without esophagitis; Z85.41 Personal history of malignant neoplasm of cervix uteri; Z92.21 Personal history of antineoplastic chemotherapy; F32.A Depression, unspecified; F41.9 Anxiety disorder, unspecified; R05.3 Chronic cough; M19.90 Unspecified osteoarthritis, unspecified site; G57.93 Unspecified mononeuropathy of bilateral lower limbs; J44.9 Chronic obstructive pulmonary disease, unspecified; M54.9 Dorsalgia, unspecified; G89.29 Other chronic pain; Z92.3 Personal history of irradiation; R32 Unspecified urinary incontinence; F17.210 Nicotine dependence, cigarettes, uncomplicated; Z79.899 Other long term (current) drug therapy
CPT/HCPCS: 31627; 31628; 31654; 71045; 76000; 88305; 93005; J0171; J1100; J1885; J2250; J2405; J3010; S2900

== ENCOUNTER → 2022-11-28 | Outpatient (CLI) | payer OTHER ==
[~2022-11-28] MED LIST changes: -ALBUTEROL SULFATE 2.5MG/0.5ML INH NEB SOLN INH ONE; -LIDOCAINE PRES-FREE 2% 10ML AMP INH ONE
== END ==
LOC: M PLARAD 12:54
PROVIDERS: ATTEND Internal Medicine Pulmonary Disease
DX: C34.12 Malignant neoplasm of upper lobe, left bronchus or lung (principal)
CPT/HCPCS: 78815; A9552

== ENCOUNTER 2022-12-21 09:16 | Day surgery (SDC) | payer OTHER ==
[~2022-12-21] VITALS: Ht 160 cm; Wt 54.4 kg
[~2022-12-21 09:16] MED LIST changes: -GABA-283 PO; +GABA-284 PO; +NICO7DIS24 TOP; +TIZA2TA PO
[2022-12-21] MEDS ORDERED: LR 1,000 ML IV SCH ×2 (09:45→12:25)
[2022-12-21] MEDS ORDERED: ONDANSETRON 4MG 2ML VIAL As Ordered ONE (10:23)
[2022-12-21] MEDS ORDERED: propofoL 200 MG/20 ML VIAL As Ordered ONE (10:23)
[2022-12-21] MEDS ORDERED: SUGAMMADEX SODIUM 500 MG/5 ML VIAL (BRIDION) As Ordered ONE (10:23)
[2022-12-21] MEDS ORDERED: LIDOCAINE 2% 100MG/5ML SDV (FOR ANES.) As Ordered ONE (10:23)
[2022-12-21] MEDS ORDERED: ROCURONIUM BROMIDE 50MG/5ML VIAL As Ordered ONE (10:23)
[2022-12-21] MEDS ORDERED: fentaNYL 100 MCG/2 ML INJECTION As Ordered ONE (10:28)
[2022-12-21] MEDS ORDERED: MIDAZOLAM INJ 2MG/2ML VIAL As Ordered ONE (10:28)
[2022-12-21] MEDS ORDERED: THROMBIN 5,000 UNITS VIAL As Ordered ONE (11:28)
[2022-12-21] MEDS ORDERED: CETACAINE SPRAY 5GM As Ordered ONE (11:28)
[2022-12-21] MEDS ORDERED: EPINEPHrine 1MG/10ML SYRINGE 1.5IN As Ordered ONE (11:29)
[2022-12-21] MEDS ORDERED: ACETAMINOPHEN 1000MG 100ML IV BAG As Ordered ONE (12:04)
[2022-12-21] MEDS ORDERED: ONDANSETRON 4MG 2ML VIAL IV PRN (12:25)
[2022-12-21] MEDS ORDERED: oxyCODONE 5MG TAB PO PRN (12:25)
[2022-12-21] MEDS ORDERED: fentaNYL 100 MCG/2 ML INJECTION IV PRN (12:25)
[2022-12-21] MEDS ORDERED: HYDROMORPHONE HCL 0.5 MG/ 0.5 ML SYRINGE IV PRN (12:25)
[2022-12-21 13:30] VITALS: BP 121/64; TEMP 97; O2SAT 98
== END 2022-12-21 13:35 | disposition home or self-care (01) ==
LOC: M SDC 09:16
PROVIDERS: ATTEND Internal Medicine Pulmonary Disease
DX: J98.59 Other diseases of mediastinum, not elsewhere classified (principal); C34.12 Malignant neoplasm of upper lobe, left bronchus or lung; I89.8 Other specified noninfective disorders of lymphatic vessels and lymph nodes; J44.9 Chronic obstructive pulmonary disease, unspecified; F12.10 Cannabis abuse, uncomplicated; F17.218 Nicotine dependence, cigarettes, with other nicotine-induced disorders
CPT/HCPCS: 31629; 31654; 71045; 88173; 88305; J0131; J1100; J2250; J2405; J3010

== ENCOUNTER → 2022-12-27 | Outpatient (CLI) | payer OTHER | LOC: M CARPUL 12-08 14:52 | PROVIDERS: ATTEND Internal Medicine Pulmonary Disease | DX: C34.12 Malignant neoplasm of upper lobe, left bronchus or lung (principal) ==

== ENCOUNTER → 2023-02-01 | Outpatient (CLI) | payer OTHER ==
[~2023-02-01] MED LIST changes: +BUPR10DI3 TD; +OXYC10TA3 PO
== END ==
LOC: M ONCR 10:10
PROVIDERS: ATTEND General Practice
DX: C34.12 Malignant neoplasm of upper lobe, left bronchus or lung (principal); M16.0 Bilateral primary osteoarthritis of hip; F17.210 Nicotine dependence, cigarettes, uncomplicated; Z79.899 Other long term (current) drug therapy; Z71.2 Person consulting for explanation of examination or test findings; Z71.6 Tobacco abuse counseling; Z80.0 Family history of malignant neoplasm of digestive organs; Z80.42 Family history of malignant neoplasm of prostate; Z80.1 Family history of malignant neoplasm of trachea, bronchus and lung; Z85.41 Personal history of malignant neoplasm of cervix uteri; Z92.21 Personal history of antineoplastic chemotherapy; Z92.3 Personal history of irradiation

== ENCOUNTER → 2023-02-07 | Outpatient (CLI) | payer OTHER ==
[~2023-02-07] MED LIST changes: +GABA-282 PO; +Hospital Bed; +ONDA4TAB6 PO; +OXYC-1 PO; +SENN-186 PO
== END ==
LOC: M ONCM 07:31
PROVIDERS: ATTEND Dietitian, Registered
DX: C34.90 Malignant neoplasm of unspecified part of unspecified bronchus or lung (principal); Z68.20 Body mass index [BMI] 20.0-20.9, adult; Z71.3 Dietary counseling and surveillance

== ENCOUNTER → 2023-02-24 | Outpatient (CLI) | payer OTHER ==
[~2023-02-24] MED LIST changes: -GABA-282 PO; -Hospital Bed; -ONDA4TAB6 PO; -OXYC-1 PO; +PROHANCE 279.3MG/ML 5ML VIAL As Ordered ONE; -SENN-186 PO
== END ==
LOC: M RAD 10:22
PROVIDERS: ATTEND Internal Medicine Medical Oncology
DX: C34.90 Malignant neoplasm of unspecified part of unspecified bronchus or lung (principal); R42 Dizziness and giddiness
CPT/HCPCS: 70553; A9576

== ENCOUNTER → 2023-02-28 | Outpatient (CLI) | payer OTHER ==
[~2023-02-28] MED LIST changes: +GABA-282 PO; +Hospital Bed; +ONDA4TAB6 PO; +OXYC-1 PO; -PROHANCE 279.3MG/ML 5ML VIAL As Ordered ONE; +SENN-186 PO
== END ==
LOC: M ONCM 12:10
PROVIDERS: ATTEND Dietitian, Registered
DX: Z53.8 Procedure and treatment not carried out for other reasons (principal)

== ENCOUNTER → 2023-03-21 | Outpatient (RCR) | payer OTHER ==
[~2023-03-21] MED LIST changes: -GABA-282 PO; -OXYC-1 PO
== END ==
LOC: M ONCR 02-28 13:13
PROVIDERS: ATTEND General Practice
DX: Z51.0 Encounter for antineoplastic radiation therapy (principal); C34.12 Malignant neoplasm of upper lobe, left bronchus or lung

== ENCOUNTER 2023-04-12 08:57 | Outpatient (RCR) | payer OTHER ==
[~2023-04-12 08:57] MED LIST changes: +GABA-282 PO; +OXYC-1 PO
== END 2023-04-20 ==
LOC: M ONCR 08:57
PROVIDERS: ATTEND General Practice
DX: Z51.0 Encounter for antineoplastic radiation therapy (principal); C34.12 Malignant neoplasm of upper lobe, left bronchus or lung

== ENCOUNTER → 2023-05-05 | Outpatient (CLI) | payer OTHER ==
[~2023-05-05] MED LIST changes: +GASTROGRAFIN SOLUTION 30ML As Ordered ONE; +ISOVUE-370 76% 100ML VIAL As Ordered ONE
== END ==
LOC: M RAD 08:51
PROVIDERS: ATTEND Nurse Practitioner
DX: C34.90 Malignant neoplasm of unspecified part of unspecified bronchus or lung (principal)
CPT/HCPCS: 71260; 74177; Q9963; Q9967

== ENCOUNTER → 2023-05-09 | Outpatient (CLI) | payer OTHER ==
[~2023-05-09] MED LIST changes: -GASTROGRAFIN SOLUTION 30ML As Ordered ONE; -ISOVUE-370 76% 100ML VIAL As Ordered ONE
== END ==
LOC: M WHC 12:59
PROVIDERS: ATTEND Obstetrics & Gynecology
DX: Z12.31 Encounter for screening mammogram for malignant neoplasm of breast (principal)

== ENCOUNTER → 2023-05-10 | Outpatient (CLI) | payer OTHER ==
[~2023-05-10] VITALS: Ht 160 cm; Wt 58.0 kg
[2023-05-10 09:33] VITALS: BP 110/63; O2SAT 97
== END ==
LOC: M PAL 09:21
PROVIDERS: ATTEND Nurse Practitioner Adult Health
DX: C34.12 Malignant neoplasm of upper lobe, left bronchus or lung (principal); G89.29 Other chronic pain; M16.0 Bilateral primary osteoarthritis of hip; M85.68 Other cyst of bone, other site; F41.9 Anxiety disorder, unspecified; F32.A Depression, unspecified; F43.10 Post-traumatic stress disorder, unspecified; M72.2 Plantar fascial fibromatosis; R06.09 Other forms of dyspnea; R53.83 Other fatigue; R63.0 Anorexia; F17.210 Nicotine dependence, cigarettes, uncomplicated; Z79.891 Long term (current) use of opiate analgesic; Z51.5 Encounter for palliative care; Z79.899 Other long term (current) drug therapy; Z80.0 Family history of malignant neoplasm of digestive organs; Z80.1 Family history of malignant neoplasm of trachea, bronchus and lung; Z80.42 Family history of malignant neoplasm of prostate; Z85.41 Personal history of malignant neoplasm of cervix uteri; Z92.21 Personal history of antineoplastic chemotherapy; Z92.3 Personal history of irradiation; Z87.891 Personal history of nicotine dependence

== ENCOUNTER → 2023-06-07 | Outpatient (CLI) | payer OTHER | LOC: M SOG 08:05 | PROVIDERS: ATTEND Orthopaedic Surgery | DX: M25.551 Pain in right hip (principal); M25.552 Pain in left hip; Z53.9 Procedure and treatment not carried out, unspecified reason ==

== ENCOUNTER → 2023-06-21 | Outpatient (CLI) | payer OTHER ==
[~2023-06-21] MED LIST changes: +FLUO10CA18 PO
== END ==
LOC: M SOG 08:08
PROVIDERS: ATTEND Orthopaedic Surgery
DX: M25.551 Pain in right hip (principal); M25.552 Pain in left hip; M47.9 Spondylosis, unspecified

== ENCOUNTER → 2023-07-12 | Outpatient (CLI) | payer OTHER ==
[~2023-07-12] VITALS: Ht 160 cm; Wt 56.4 kg
[~2023-07-12] MED LIST changes: +ATOR1TAB21; +FAMO20TA5; +FLUO1TAB3; +MAGICMW SSP
[2023-07-12 09:39] VITALS: BP 120/69; O2SAT 97
== END ==
LOC: M PAL 09:29
PROVIDERS: ATTEND Nurse Practitioner Adult Health
DX: C34.12 Malignant neoplasm of upper lobe, left bronchus or lung (principal); G89.29 Other chronic pain; M16.0 Bilateral primary osteoarthritis of hip; M85.68 Other cyst of bone, other site; F41.9 Anxiety disorder, unspecified; F32.A Depression, unspecified; F43.10 Post-traumatic stress disorder, unspecified; M72.2 Plantar fascial fibromatosis; R06.09 Other forms of dyspnea; R53.83 Other fatigue; R63.0 Anorexia; Z79.891 Long term (current) use of opiate analgesic; Z51.5 Encounter for palliative care; Z79.899 Other long term (current) drug therapy; Z80.0 Family history of malignant neoplasm of digestive organs; Z80.1 Family history of malignant neoplasm of trachea, bronchus and lung; Z80.42 Family history of malignant neoplasm of prostate; Z85.42 Personal history of malignant neoplasm of other parts of uterus; Z92.21 Personal history of antineoplastic chemotherapy; Z92.3 Personal history of irradiation; R06.02 Shortness of breath; Z87.891 Personal history of nicotine dependence; S00.521A Blister (nonthermal) of lip, initial encounter; Y92.9 Unspecified place or not applicable; Y93.9 Activity, unspecified

== ENCOUNTER → 2023-08-18 | Outpatient (REF) | payer OTHER | LOC: M PLALAB 11:49 | PROVIDERS: ATTEND Obstetrics & Gynecology | DX: Z12.4 Encounter for screening for malignant neoplasm of cervix (principal); R87.810 Cervical high risk human papillomavirus (HPV) DNA test positive ==

== ENCOUNTER → 2023-08-25 | Outpatient (CLI) | payer OTHER | LOC: M RAD 13:46 | PROVIDERS: ATTEND Student in an Organized Health Care Education/Training Program | DX: E04.1 Nontoxic single thyroid nodule (principal) ==

== ENCOUNTER → 2023-09-06 | Outpatient (CLI) | payer OTHER ==
[~2023-09-06] MED LIST changes: -ATOR1TAB21; +ATOR1TAB21 PO; -FAMO20TA5; +FAMO20TA5 PO; -FLUO1TAB3; +FLUO1TAB3 PO; +GASTROGRAFIN SOLUTION 30ML As Ordered ONE; +ISOVUE-370 76% 100ML VIAL As Ordered ONE
== END ==
LOC: M RAD 08-22 13:30
PROVIDERS: ATTEND Internal Medicine Medical Oncology
DX: C34.12 Malignant neoplasm of upper lobe, left bronchus or lung (principal); Z53.9 Procedure and treatment not carried out, unspecified reason

== ENCOUNTER → 2023-09-12 | Outpatient (CLI) | payer OTHER ==
[~2023-09-12] VITALS: Ht 160 cm; Wt 57.0 kg
[~2023-09-12] MED LIST changes: -GASTROGRAFIN SOLUTION 30ML As Ordered ONE; -ISOVUE-370 76% 100ML VIAL As Ordered ONE
[2023-09-12 09:40] VITALS: BP 114/59; O2SAT 96
== END ==
LOC: M PAL 09:22
PROVIDERS: ATTEND Nurse Practitioner Adult Health
DX: C34.12 Malignant neoplasm of upper lobe, left bronchus or lung (principal); G89.29 Other chronic pain; R63.0 Anorexia; K12.1 Other forms of stomatitis; M16.0 Bilateral primary osteoarthritis of hip; M72.2 Plantar fascial fibromatosis; R06.09 Other forms of dyspnea; M85.68 Other cyst of bone, other site; M79.604 Pain in right leg; M79.605 Pain in left leg; F41.9 Anxiety disorder, unspecified; F32.A Depression, unspecified; F43.10 Post-traumatic stress disorder, unspecified; Z51.5 Encounter for palliative care; Z79.891 Long term (current) use of opiate analgesic; Z79.899 Other long term (current) drug therapy; Z80.0 Family history of malignant neoplasm of digestive organs; Z80.1 Family history of malignant neoplasm of trachea, bronchus and lung; Z80.42 Family history of malignant neoplasm of prostate; Z85.42 Personal history of malignant neoplasm of other parts of uterus; Z92.21 Personal history of antineoplastic chemotherapy; Z92.3 Personal history of irradiation; Z87.891 Personal history of nicotine dependence

== ENCOUNTER → 2023-10-02 | Outpatient (REF) | payer OTHER ==
[~2023-10-02] MED LIST changes: +FLUO-290 PO; -FLUO10CA18 PO; +ONDA-282 PO; -ONDA4TAB6 PO
== END ==
LOC: M PLALAB 14:57
PROVIDERS: ATTEND Obstetrics & Gynecology
DX: R87.89 Other abnormal findings in specimens from female genital organs (principal)

== ENCOUNTER → 2023-11-08 | Outpatient (CLI) | payer OTHER | LOC: M PAL 08:55 | PROVIDERS: ATTEND Nurse Practitioner Adult Health | DX: G89.3 Neoplasm related pain (acute) (chronic) (principal); C34.90 Malignant neoplasm of unspecified part of unspecified bronchus or lung; R11.0 Nausea; R06.00 Dyspnea, unspecified; F17.290 Nicotine dependence, other tobacco product, uncomplicated; Z51.5 Encounter for palliative care; Z79.891 Long term (current) use of opiate analgesic; Z79.899 Other long term (current) drug therapy; Z85.41 Personal history of malignant neoplasm of cervix uteri; Z92.3 Personal history of irradiation; Z80.0 Family history of malignant neoplasm of digestive organs; Z80.42 Family history of malignant neoplasm of prostate; Z80.1 Family history of malignant neoplasm of trachea, bronchus and lung ==

== ENCOUNTER → 2023-12-11 | Outpatient (CLI) | payer OTHER ==
[~2023-12-11] MED LIST changes: +GASTROGRAFIN SOLUTION 30ML As Ordered ONE; +ISOVUE-370 76% 100ML VIAL As Ordered ONE
== END ==
LOC: M RAD 11:21
PROVIDERS: ATTEND Internal Medicine Medical Oncology
DX: C34.90 Malignant neoplasm of unspecified part of unspecified bronchus or lung (principal)
CPT/HCPCS: 71260; 74177; Q9963; Q9967

== ENCOUNTER → 2024-01-12 | Outpatient (CLI) | payer OTHER ==
[~2024-01-12] MED LIST changes: +AZIT-12 PO; -GASTROGRAFIN SOLUTION 30ML As Ordered ONE; -ISOVUE-370 76% 100ML VIAL As Ordered ONE; +ORAL0.1P MT; +PRED50TA PO
== END ==
LOC: M ONCR 10:25
PROVIDERS: ATTEND General Practice
DX: C34.12 Malignant neoplasm of upper lobe, left bronchus or lung (principal); J44.9 Chronic obstructive pulmonary disease, unspecified; F17.210 Nicotine dependence, cigarettes, uncomplicated; Z79.620 Long term (current) use of immunosuppressive biologic; Z79.899 Other long term (current) drug therapy; Z92.21 Personal history of antineoplastic chemotherapy; Z92.3 Personal history of irradiation

== ENCOUNTER → 2024-03-08 | Outpatient (CLI) | payer OTHER ==
[~2024-03-08] MED LIST changes: +GABA-1172 PO; -GABA-282 PO; +GASTROGRAFIN SOLUTION 30ML As Ordered ONE; +ISOVUE-370 76% 100ML VIAL As Ordered ONE
== END ==
LOC: M RAD 09:13
PROVIDERS: ATTEND Internal Medicine Medical Oncology
DX: C34.90 Malignant neoplasm of unspecified part of unspecified bronchus or lung (principal); K76.0 Fatty (change of) liver, not elsewhere classified; K56.41 Fecal impaction
CPT/HCPCS: 71260; 74177; Q9963; Q9967

== ENCOUNTER → 2024-06-03 | Outpatient (CLI) | payer OTHER ==
[~2024-06-03] MED LIST changes: -GASTROGRAFIN SOLUTION 30ML As Ordered ONE
== END ==
LOC: M RAD 12:49
PROVIDERS: ATTEND Internal Medicine Medical Oncology
DX: C34.90 Malignant neoplasm of unspecified part of unspecified bronchus or lung (principal); N28.1 Cyst of kidney, acquired; I25.10 Atherosclerotic heart disease of native coronary artery without angina pectoris; E04.2 Nontoxic multinodular goiter; J84.10 Pulmonary fibrosis, unspecified
CPT/HCPCS: 71260; 74177; Q9967

== ENCOUNTER → 2024-07-16 | Outpatient (CLI) | payer OTHER ==
[~2024-07-16] MED LIST changes: -ISOVUE-370 76% 100ML VIAL As Ordered ONE; +NICO21DI38
== END ==
LOC: M ONCR 10:00
PROVIDERS: ATTEND General Practice
DX: C34.12 Malignant neoplasm of upper lobe, left bronchus or lung (principal); F17.218 Nicotine dependence, cigarettes, with other nicotine-induced disorders; Z92.21 Personal history of antineoplastic chemotherapy; Z92.3 Personal history of irradiation; Z92.29 Personal history of other drug therapy; Z79.899 Other long term (current) drug therapy

== ENCOUNTER → 2024-09-24 | Outpatient (CLI) | payer OTHER ==
[~2024-09-24] MED LIST changes: +ISOVUE-370 76% 100ML VIAL As Ordered ONE; -PRED50TA PO; +PRED50TA57 PO
== END ==
LOC: M RAD 09:15
PROVIDERS: ATTEND Internal Medicine Medical Oncology
DX: C34.90 Malignant neoplasm of unspecified part of unspecified bronchus or lung (principal)
CPT/HCPCS: 71260; 74177; Q9967

== ENCOUNTER → 2024-09-25 | Outpatient (CLI) | payer OTHER ==
[~2024-09-25] VITALS: Ht 160 cm; Wt 56.7 kg
[~2024-09-25] MED LIST changes: -ISOVUE-370 76% 100ML VIAL As Ordered ONE
[2024-09-25 13:50] VITALS: BP 128/68; O2SAT 97
== END ==
LOC: M PAL 13:20
PROVIDERS: ATTEND Physician Assistant
DX: Z51.5 Encounter for palliative care (principal); Z85.118 Personal history of other malignant neoplasm of bronchus and lung; C34.90 Malignant neoplasm of unspecified part of unspecified bronchus or lung; Z79.891 Long term (current) use of opiate analgesic; Z79.899 Other long term (current) drug therapy; Z79.02 Long term (current) use of antithrombotics/antiplatelets

== ENCOUNTER → 2024-12-12 | Outpatient (REF) | payer OTHER ==
[2024-12-13 11:54] LABS: APPEARANCE, URINE CLEAR (CLEAR); BACTERIA, URINE AUTO NEGATIVE (NEGATIVE); BILIRUBIN, URINE AUTO NEGATIVE (NEGATIVE); BLOOD, URINE BLOOD 1+ (NEGATIVE); GLUCOSE, URINE (UA) AUTO NEGATIVE (NEGATIVE); KETONE, URINE AUTO NEGATIVE (NEGATIVE); LEUKOCYTE ESTERASE, URINE AUTO NEGATIVE (NEGATIVE); NITRITE, URINE AUTO NEGATIVE (NEGATIVE); PROTEIN, URINE AUTO NEGATIVE (NEGATIVE); RBC, URINE AUTO 0 /HPF (0-3); SPECIFIC GRAVITY URINE AUTO 1.009 (1.002-1.035); SQUAMOUS EPITHELIAL CELL UR AU 0 /HPF (0-6); UROBILINOGEN, URINE AUTO 0.2 mg/dL (0.0-2.0); WBC, URINE AUTO 0 /HPF (0-3)
== END ==
LOC: M LAB REF 11:13
DX: R39.9 Unspecified symptoms and signs involving the genitourinary system (principal)

== ENCOUNTER → 2025-01-07 | Outpatient (CLI) | payer OTHER ==
[~2025-01-07] MED LIST changes: +ISOVUE-370 76% 100 ML VIAL As Ordered ONE
== END ==
LOC: M RAD 13:09
PROVIDERS: ATTEND Internal Medicine Hematology & Oncology
DX: C34.92 Malignant neoplasm of unspecified part of left bronchus or lung (principal); J84.10 Pulmonary fibrosis, unspecified; N28.1 Cyst of kidney, acquired; I70.0 Atherosclerosis of aorta; I25.10 Atherosclerotic heart disease of native coronary artery without angina pectoris
CPT/HCPCS: 71260; 74177; Q9967

== ENCOUNTER → 2025-03-31 | Outpatient (CLI) | payer OTHER ==
[~2025-03-31] VITALS: Ht 160 cm; Wt 55.1 kg
[~2025-03-31] MED LIST changes: -ISOVUE-370 76% 100 ML VIAL As Ordered ONE; +[UNRECOGNIZED DRUG - CODE] MM
[2025-03-31 13:28] VITALS: BP 139/75; O2SAT 95
== END ==
LOC: M PAL 13:13
PROVIDERS: ATTEND Physician Assistant
DX: Z51.5 Encounter for palliative care (principal); Z85.118 Personal history of other malignant neoplasm of bronchus and lung; Z79.891 Long term (current) use of opiate analgesic; Z79.899 Other long term (current) drug therapy; Z79.02 Long term (current) use of antithrombotics/antiplatelets

== ENCOUNTER → 2025-04-22 | Outpatient (CLI) | payer OTHER ==
[~2025-04-22] MED LIST changes: +HYDR50TA70
== END ==
LOC: M CARPUL 14:21
PROVIDERS: ATTEND Internal Medicine Medical Oncology
DX: R51.9 Headache, unspecified (principal); C34.92 Malignant neoplasm of unspecified part of left bronchus or lung; I34.0 Nonrheumatic mitral (valve) insufficiency

== ENCOUNTER → 2025-05-01 | Outpatient (REF) | payer OTHER | LOC: M SFHCPLAZ 16:54 | PROVIDERS: ATTEND Nurse Practitioner Adult Health | DX: R09.89 Other specified symptoms and signs involving the circulatory and respiratory systems (principal) ==